=== PATIENT | male | born 1980 | race Two or more races ===

== ENCOUNTER 2016-05-29 11:58 | Emergency (ER) | payer MEDICAID ==
[~2016-05-29] VITALS: Ht 165.1 cm; Wt 63.5 kg
[~2016-05-29 11:58] MED LIST: IBUPROFEN600 MG ORAL; NKM; NORCO 5-325 TA1 EACH ORAL
[2016-05-29 12:15] VITALS: BP 128/85
[2016-05-29] MEDS ORDERED: Famotidine 20 MG/ 2ML VIAL IVP ONE (12:15)
--- NOTE | 2016-05-29 12:51 | Emergency Room Report ---
History of Present Illness General Chief Complaint: Nausea, Vomiting, and Diarrhea Source: Patient Present Illness HPI The patient is a 35-year-old male who denies any medical history presenting for 2 days of nausea, vomiting, and diarrhea with abdominal pain. The patient states that he developed the nausea and vomiting before the pain. Patient denies any sick contacts or recent travel. Patient states pain is a 9/10 dull ache to the mid abdomen with no radiation. The patient states he has not been able to eat well within the past 2 days. The patient denies other symptoms including fever, chills, shortness of breath, chest pain, night sweats, melena, hematochezia, hematemesis Allergies: Coded Allergies: No Known Allergies (Unverified , 12/19/13) Patient History Past Medical History: see triage record Pertinent Family History: none Reviewed Nursing Documentation: PMH: Agreed, PSxH: Agreed Nursing Documentation-PM Past Medical History: No Stated History Hx Neurological Problems: Yes - HEADACHES Review of Systems All Other Systems: negative except mentioned in HPI Physical Exam Vital Signs Date Time Temp Pulse Resp B/P Pulse Ox O2 Delivery O2 Flow Rate FiO2 05/29/16 12:10 98.2 83 24 128/85 97 Room Air Sp02 EP Interpretation: reviewed, normal General Appearance: no apparent distress, alert, GCS 15, non-toxic Head: normocephalic, atraumatic Eyes: bilateral eye PERRL, bilateral eye normal inspection ENT: hearing grossly normal, normal pharynx, no angioedema, normal voice Neck: full range of motion, supple/symm/no masses Respiratory: chest non-tender, lungs clear, normal breath sounds, no wheezing, speaking full sentences Gastrointestinal: normal inspection, normal bowel sounds, non-distended, no guarding, tenderness - RUQ Genitourinary: normal inspection, no CVA tenderness Musculoskeletal: back normal, gait/station normal, normal range of motion, non- tender Neurologic: alert, oriented x3, responsive, motor strength/tone normal, sensory intact, speech normal Psychiatric: judgement/insight normal, memory normal, mood/affect normal, no suicidal/homicidal ideation Skin: normal color, no rash, warm/dry, well hydrated Lymphatic: no adenopathy Medical Decision Making PA Attestation Dr. Kearney is my supervising physician. Patient management was discussed with my supervising physician Diagnostic Impression: Primary Impression: Biliary colic ER Course The patient is a 35-year-old male who denies any medical history presenting for 2 days of nausea, vomiting, and diarrhea with abdominal pain Differential diagnoses considered include but not limited to cholecystitis, gastritis, pancreatitis, appendicitis, renal lithiases Physical exam: Vitals are within normal limits. No apparent distress Abdomen is soft. Normal bowel sounds. Nondistended. No ecchymosis or discoloration. There is tenderness to palpation over the right upper cord and only. No guarding No CVA tenderness Ultrasound of the abdomen shows Fatty liver and increased gallbladder size. No signs of cholecystitis or cholelithiasis. The patient is given Zofran, IV fluids and pain medication and is feeling better. The patient will be discharged home with prescription for pain medication and Zofran and will follow up with PMD. Patient is informed of the results Laboratory Tests Test 05/29/16 12:45 White Blood Count 6.4 K/UL (4.8-10.8) Red Blood Count 5.03 M/UL (4.70-6.10) Hemoglobin 16.0 G/DL (14.2-18.0) Hematocrit 47.1 % (42.0-52.0) Mean Corpuscular Volume 94 FL (80-99) Mean Corpuscular Hemoglobin 31.8 PG (27.0-31.0) H Mean Corpuscular Hemoglobin Concent 33.9 G/DL (32.0-36.0) Red Cell Distribution Width 11.4 % (11.6-14.8) L Platelet Count 215 K/UL (150-450) Mean Platelet Volume 9.8 FL (6.5-10.1) Neutrophils (%) (Auto) 67.4 % (45.0-75.0) Lymphocytes (%) (Auto) 21.5 % (20.0-45.0) Monocytes (%) (Auto) 8.8 % (1.0-10.0) Eosinophils (%) (Auto) 0.6 % (0.0-3.0) Basophils (%) (Auto) 1.7 % (0.0-2.0) Urine Color Yellow Urine Appearance Clear Urine pH 5 (4.5-8.0) Urine Specific [place] 1.025 (1.005-1.035) Urine Protein Negative (NEGATIVE) Urine Glucose (UA) Negative (NEGATIVE) Urine Ketones Negative (NEGATIVE) Urine Occult Blood 2+ (NEGATIVE) H Urine Nitrite Negative (NEGATIVE) Urine Bilirubin Negative (NEGATIVE) Urine Urobilinogen Normal MG/DL (0.0-1.0) Urine Leukocyte Esterase Negative (NEGATIVE) Urine RBC 2-4 /HPF (0 - 0) H Urine WBC 0-2 /HPF (0 - 0) Urine Squamous Epithelial Cells Occasional /LPF Urine Bacteria Few /HPF (NONE) Urine Mucus Moderate /LPF (NONE/OCC) H Sodium Level 134 mEQ/L (135-145) L Potassium Level 4.0 mEQ/L (3.4-4.9) Chloride Level 92 mEQ/L (98-107) L Carbon Dioxide Level 25 mEQ/L (20-30) Anion Gap 17 (5-15) H Blood Urea Nitrogen 12 mg/dL (7-23) Creatinine 0.7 mg/dL (0.7-1.2) Estimate Glomerular Filtration Rate > 60 mL/min (>60) Glucose Level 121 mg/dL (74-106) H Calcium Level 9.2 mg/dL (8.6-10.2) Total Bilirubin 2.3 mg/dL (0.0-1.2) H Direct Bilirubin 0.4 mg/dL (0.1-0.3) H Aspartate Amino Transferase (AST) 264 U/L (5-40) H Alanine Aminotransferase (ALT) 140 U/L (3-41) H Alkaline Phosphatase 104 U/L (40-129) Total Protein 7.1 g/dL (6.6-8.7) Albumin 4.1 g/dL (3.5-5.2) Globulin 3.0 g/dL Albumin/Globulin Ratio 1.3 (1.0-2.7) Amylase Level 46 U/L (10-110) Lipase 15 U/L (< 60) Lab Results Impression CBC shows no leukocytosis. It was unremarkable CMP shows increased AST, ALT. Both total and direct bilirubin elevated. Urinalysis unremarkable CT/MRI/US Diagnostic Results CT/MRI/US Diagnostic Results : Imaging Test Ordered: Abd US Impression Liver demonstrates diffusely increased echogenicity, consistent with diffuse hepatocellular disease, most likely fatty change. Also described on prior CT scan of 05/18/2014 Negative for gallstones or dilated ducts or other acute pathology Last Vital Signs Date Time Temp Pulse Resp B/P Pulse Ox O2 Delivery O2 Flow Rate FiO2 05/29/16 12:15 24 128/85 97 Room Air 05/29/16 12:10 98.2 83 Status: improved Disposition: HOME, SELF-CARE Condition: Improved Scripts Hydrocodone Bit/Acetaminophen 5-325* (NORCO 5-325 TABLET*) 1 Each Tablet 1 TAB ORAL Q6HR Y for For Pain, #10 TAB Prov: JACQUES JIMENEZ 05/29/16 Ondansetron* (ZOFRAN*) 4 Mg Tablet 4 MG ORAL Q6H Y for Nausea & Vomiting, #15 TAB Prov: JACQUES JIMENEZ.Adriana 05/29/16 JACQUES JIMENEZ May 29, 2016 12:51
[2016-05-29 12:54] LABS: BASOPHILS % (AUTO) 1.7 % (0.0-2.0); EOSINOPHILS % (AUTO) 0.6 % (0.0-3.0); LYMPHOCYTES % (AUTO) 21.5 % (20.0-45.0); MEAN CORPUSCULAR HEMOGLOBIN 31.8 PG (27.0-31.0); MEAN CORPUSCULAR HGB CONC 33.9 G/DL (32.0-36.0); MEAN CORPUSCULAR VOLUME 94 FL (80-99); MEAN PLATELET VOLUME 9.8 FL (6.5-10.1); MONOCYTES % (AUTO) 8.8 % (1.0-10.0); NEUTROPHILS % (AUTO) 67.4 % (45.0-75.0); PLATELET COUNT 215 K/UL (150-450); RED BLOOD COUNT 5.03 M/UL (4.70-6.10); RED CELL DISTRIBUTION WIDTH 11.4 % (11.6-14.8); WHITE BLOOD COUNT 6.4 K/UL (4.8-10.8)
[2016-05-29 12:57] LABS: APPEARANCE,URINE CLEAR; KETONES,URINE NEGATIVE (NEGATIVE); LEUKOCYTE ESTERASE ,URINE NEGATIVE (NEGATIVE); NITRITE,URINE NEGATIVE (NEGATIVE); PH,URINE 5 (4.5-8.0); PROTEIN,URINE NEGATIVE (NEGATIVE); UROBILINOGEN,URINE NORMAL MG/DL (0.0-1.0)
[2016-05-29 13:08] LABS: ALANINE AMINOTRANSFERASE 140 U/L (3-41); ALBUMIN/GLOBULIN RATIO 1.3 (1.0-2.7); AMYLASE 46 U/L (10-110); ANION GAP 17 (5-15); ASPARTATE AMINO TRANSFERASE 264 U/L (5-40); BACTERIA,URINE FEW /HPF; CALCIUM 9.2 mg/dL (8.6-10.2); CARBON DIOXIDE 25 mEQ/L (20-30); CHLORIDE 92 mEQ/L (98-107); CREATININE 0.7 mg/dL (0.7-1.2); GLOMERULAR FILTRATION RATE > 60 mL/min (>60); HEMOLYSIS 15; LIPASE 15 U/L (< 60); MUCUS,URINE MODERATE /LPF (NONE/OCC); SODIUM 134 mEQ/L (135-145); SQUAMOUS EPITHELIAL CELL,UR OCCASIONAL /LPF (NONE/OCC); TOTAL PROTEIN 7.1 g/dL (6.6-8.7); WBC,URINE 0-2 /HPF (0 - 0)
[2016-05-29 13:20] LABS: BILIRUBIN,DIRECT 0.4 mg/dL (0.1-0.3)
[2016-05-29] MEDS ORDERED: Morphine Sulfate 2mg/ml Inj IVP ONE (13:45)
[2016-05-29] MEDS ORDERED: ZOFRAN4 M3 ORAL (16:53)
[2016-05-29] MEDS ORDERED: NORCO 5-325 TA1 EAC1 ORAL (16:53)
[2016-05-29 17:00] VITALS: BP 120/77
--- NOTE | 2016-05-29 17:09 | Diagnostic Imaging Report ---
Indication: Right upper quadrant pain, vomiting x2 days Technique: Moscoso-scale and duplex images of the upper abdomen were obtained Comparison: None Findings: . Gallbladder is unremarkable, without stones, wall thickening, nor pericholecystic fluid. Sonographic Espinal's sign is negative. Common bile duct measures 6 mm in diameter. No intrahepatic biliary ductal dilatation. Liver demonstrates diffusely increased echogenicity, consistent with diffuse hepatocellular disease, most likely fatty change.. Portal vein and hepatic veins are patent.. Pancreas is unremarkable. Spleen is unremarkable. Left kidney measures 11.1 cm in length. Right kidney measures 10.9 cm length. Both kidneys demonstrate normal echogenicity. There is no hydronephrosis. No focal abnormality. . Non-aneurysmal abdominal aorta. Impression: Liver demonstrates diffusely increased echogenicity, consistent with diffuse hepatocellular disease, most likely fatty change. Also described on prior CT scan of 05/18/2014 Negative for gallstones or dilated ducts or other acute pathology
== END 2016-05-29 17:00 | disposition home or self-care (01) ==
LOC: EMR 13:15
DX: K80.50 Calculus of bile duct without cholangitis or cholecystitis without obstruction (principal)
CPT/HCPCS: 36415; 76700; 80053; 81003; 82150; 82248; 83690; 85025; 96374; 96375; 99284; J2405; S0028

== ENCOUNTER 2018-10-01 12:59 | Emergency (ER) | payer MEDICAID ==
[~2018-10-01] VITALS: Ht 162.6 cm; Wt 83.9 kg
[~2018-10-01 12:59] MED LIST changes: +NORCO 5-325 TA1 EAC1 ORAL; +ZOFRAN4 M3 ORAL
[2018-10-01] MEDS ORDERED: NKM (13:14)
--- NOTE | 2018-10-01 13:26 | NUR ---
ED Nurse Note: PT WALKED IN TO ER TODAY FROM HOME. AOX4. PT C/O LOWER ABDOMINAL PAIN, 11/05 X 2 DAYS AGO ALONG WITH MULTIPLE EPISODES OF VOMITING AND DIARRHEA. ACTIVE BOWEL SOUNDS IN ALL QUADRANTS. ABDOMEN NONDISTENDED AND NONTENDER TO PALPATION. LAST BM X THIS AM WHICH PT STATES WAS LIQUID. PT STATES HE HS HX OF ALCOHOLISM AND DRINKS ABOUT 5-6 BEERS A DAY WITH OCCASIONAL TEQUILA. AT BEDSIDE, O2 SAT 87% ON RA. PT PLACED ON 2L O2 VIA NASAL CANNULA. O2 SAT 97% ON 2L. DR IRAJ WYLIE.
[2018-10-01 13:28] VITALS: BP 128/84
[2018-10-01] MEDS ORDERED: Morphine Sulfate 4mg/ml Inj (IV USE ONLY) IVP ONE (13:30)
[2018-10-01] MEDS ORDERED: Isovue-300 100ml vial INJ PRN (13:30)
[2018-10-01 13:38] LABS: APPEARANCE,URINE CLEAR; BILIRUBIN, URINE NEGATIVE (NEGATIVE); COLOR,URINE PALE YELLOW; GLUCOSE, URINE (UA) NEGATIVE (NEGATIVE); KETONES,URINE NEGATIVE (NEGATIVE); LEUKOCYTE ESTERASE ,URINE NEGATIVE (NEGATIVE); NITRITE,URINE NEGATIVE (NEGATIVE); PH,URINE 5 (4.5-8.0); PROTEIN,URINE NEGATIVE (NEGATIVE); UROBILINOGEN,URINE NORMAL MG/DL (0.0-1.0)
--- NOTE | 2018-10-01 13:41 | NUR ---
ED Nurse Note: RT AT BEDSIDE FOR ABG.
[2018-10-01 13:54] LABS: BASOPHILS % (AUTO) 1.9 % (0.0-2.0); EOSINOPHILS % (AUTO) 0.7 % (0.0-3.0); HEMATOCRIT 41.9 % (42.0-52.0); HEMOGLOBIN 15.1 G/DL (14.2-18.0); LYMPHOCYTES % (AUTO) 29.7 % (20.0-45.0); MEAN CORPUSCULAR VOLUME 94 FL (80-99); MONOCYTES % (AUTO) 4.9 % (1.0-10.0); NEUTROPHILS % (AUTO) 62.8 % (45.0-75.0); PLATELET COUNT 165 K/UL (150-450); RED BLOOD COUNT 4.44 M/UL (4.70-6.10); RED CELL DISTRIBUTION WIDTH 13.8 % (11.6-14.8); WHITE BLOOD COUNT 5.9 K/UL (4.8-10.8)
--- NOTE | 2018-10-01 14:01 | Emergency Room Report ---
History of Present Illness General Chief Complaint: Abdominal Pain Source: Patient Present Illness HPI Patient presents emergency department today complaint 2 days of worsening abdominal pain. Patient states that his pain is right lower quadrant associate nausea vomiting and episodes of diarrhea. He denies any fever. No chest pain shortness of breath. Symptoms noted to be severe. No other modifying factors. No other associated signs and symptoms. No other complaints were noted. Allergies: Coded Allergies: No Known Allergies (Unverified , 12/19/13) Patient History Past Medical History: none Past Surgical History: none Pertinent Family History: none Social History: Denies: smoking, alcohol use, drug use Reviewed Nursing Documentation: PMH: Agreed; PSxH: Agreed Nursing Documentation-PMH Past Medical History: No Stated History Hx Neurological Problems: Yes - HEADACHES Review of Systems All Other Systems: negative except mentioned in HPI Physical Exam Vital Signs Date Time Temp Pulse Resp B/P (MAP) Pulse Ox O2 Delivery O2 Flow Rate FiO2 10/01/18 13:07 98.2 85 17 120/79 (93) 95 Room Air 10/01/18 13:28 2.0 Sp02 EP Interpretation: reviewed, normal General Appearance: normal inspection, well appearing, no apparent distress, alert Head: atraumatic Eyes: bilateral eye normal inspection ENT: normal ENT inspection, hearing grossly normal, normal voice Neck: normal inspection, full range of motion, supple, no bony tend Respiratory: normal inspection, lungs clear, normal breath sounds, no respiratory distress, no retraction, no wheezing Cardiovascular #1: regular rate, rhythm, no edema Gastrointestinal: normal inspection, normal bowel sounds, soft, no guarding, no hernia, tenderness - Tender right lower quadrant Genitourinary: no CVA tenderness Musculoskeletal: normal inspection, back normal, normal range of motion Neurologic: normal inspection, alert, responsive, speech normal Psychiatric: normal inspection, judgement/insight normal, mood/affect normal Medical Decision Making Diagnostic Impression: Primary Impression: Abdominal pain ER Course Patient presents to the emergency department today complaining of abdominal pain. Differential considerations include acute pancreatitis, cholecystitis, gastritis, hepatitis, appendicitis just to name a few. Given patient's presentation I feel the patient require extensive laboratory work-up and CT scan to rule out appendicitis. I will sign this case out to my colleague Dr. Lozano for final disposition. Last Vital Signs Date Time Temp Pulse Resp B/P (MAP) Pulse Ox O2 Delivery O2 Flow Rate FiO2 10/01/18 13:28 98.4 94 28 128/84 97 Nasal Cannula 2.0 Referrals: NOT CHOSEN IPA/,REFERRING (PCP) Gabriel Bai MD Oct 01, 2018 14:01
[2018-10-01 14:06] LABS: ANION GAP 13 mmol/L (5-15); BLOOD UREA NITROGEN 10 mg/dL (7-18); CALCIUM 8.6 MG/DL (8.5-10.1); CARBON DIOXIDE 25 MMOL/L (21-32); CHLORIDE 105 MMOL/L (98-107); CREATININE 0.5 MG/DL (0.55-1.30); POTASSIUM 3.6 MMOL/L (3.5-5.1); SODIUM 143 MMOL/L (136-145)
[2018-10-01 14:10] LABS: ALANINE AMINOTRANSFERASE 148 U/L (12-78); ALBUMIN 3.9 G/DL (3.4-5.0); ALBUMIN/GLOBULIN RATIO 0.9 (1.0-2.7); ALKALINE PHOSPHATASE 171 U/L (46-116); ASPARTATE AMINO TRANSFERASE 181 U/L (15-37); BILIRUBIN,TOTAL 0.6 MG/DL (0.2-1.0)
--- NOTE | 2018-10-01 14:11 | NUR ---
ED Nurse Note: RADIOLOGY CALLED FOR CT.
--- NOTE | 2018-10-01 14:15 | NUR ---
ED Nurse Note: XRAY AT BEDSIDE.
[2018-10-01 14:18] LABS: INR 1.2 (0.9-1.1)
--- NOTE | 2018-10-01 14:18 | NUR ---
ED Nurse Note: PT DOWN TO CT VIA CHUCK.
--- NOTE | 2018-10-01 14:42 | NUR ---
ED Nurse Note: PT BACK FROM CT VIA CHUCK.
--- NOTE | 2018-10-01 15:02 | Diagnostic Imaging Report ---
Indication: Abdominal pain Technique: Continuous helical transaxial imaging of the abdomen and pelvis was obtained from the lung bases to the pubic symphysis during intravenous contrast administration. Coronal 2-D reformats were also obtained. Study obtained in a Siemens sensation [address] Automatic Exposure Control was utilized. Total Dose length Product (DLP): 699.[address] Dose Index Volume (CTDIvol): 12.7 mGy Comparison: None Findings: The liver is enlarged and low in attenuation. Gallbladder is distended. Spleen appears normal. The pancreas, kidneys and adrenal glands are unremarkable. The appendix is normal. There is apparent thickening of the colonic wall, which is suboptimally evaluated as it is diffusely decompressed. Correlate clinically for colitis. There is no abscess or free fluid. Bladder is unremarkable. IMPRESSION: Hepatomegaly with fatty infiltration. Diffuse underdistention of the colon which is limited in evaluation. That said there is some suspicion of colitis. Please correlate clinically. Normal appendix The CT scanner at [facility] is accredited by the [employer] and the scans are performed using dose optimization techniques as appropriate to a performed exam including Automatic Exposure control.
--- NOTE | 2018-10-01 15:05 | Diagnostic Imaging Report ---
Indication: Cough Comparison: 01/20/2016 A single view chest radiograph was obtained. Findings: Cardiomediastinal appearance is within normal limits for age. The lungs are clear. Pulmonary vascularity is appropriate. The diaphragmatic contour is smooth and costophrenic angles are sharp. No pleural effusions are identified. The bones are unremarkable. Impression: No acute findings
[2018-10-01 15:13] VITALS: BP 124/80
[2018-10-01] MEDS ORDERED: ONDANSETRON ODT4 MG BC (15:30)
[2018-10-01] MEDS ORDERED: DICYCLOMINE HCL10 MG ORAL (15:30)
[2018-10-01] MEDS ORDERED: METRONIDAZOLE500 MG ORAL (15:30)
[2018-10-01] MEDS ORDERED: RANITIDINE HCL150 MG ORAL (15:30)
--- NOTE | 2018-10-01 15:33 | Emergency Room Report ---
Physical Exam Vital Signs Date Time Temp Pulse Resp B/P (MAP) Pulse Ox O2 Delivery O2 Flow Rate FiO2 10/01/18 13:07 98.2 85 17 120/79 (93) 95 Room Air 10/01/18 13:28 2.0 Medical Decision Making Diagnostic Impression: Primary Impression: Colitis Additional Impression: Abdominal pain Qualified Codes: R10.9 - Unspecified abdominal pain ER Course Hospital Course 37 yo M presents to ED c/o abd pain and diarrhea Initially seen and evaluated by Dr carbajal; please see his note for full history and physical Clinical course patient pending CT CT Shows colitis. no evidence of appendicitis discussed findings with patient. On reassessment patient states he feels better. Safe for discharge with close outpatient follow-up. Will provide prescriptions for antibiotics and other medications. Will provide referrals. I feel this is a highly complex case requiring extensive working including EKG/ Rhythm strip, Xray/CT/US, Blood/urine lab work, repeat exams while in ED, and administration of strong opiates/narcotics for pain control, admission to hospital or close patient follow up. Diagnosis - colitis, abdominal pain Stable and discharged to home with Rx flagyl, zantac, zofran, bentyl. Followup with PMD. Return to ED if symptoms recur or worsen Labs Test 10/01/18 13:16 10/01/18 13:25 10/01/18 13:34 Urine Color Pale yellow Urine Appearance Clear Urine pH 5 (4.5-8.0) Urine Specific [place] 1.015 (1.005-1.035) Urine Protein Negative (NEGATIVE) Urine Glucose (UA) Negative (NEGATIVE) Urine Ketones Negative (NEGATIVE) Urine Blood 1+ (NEGATIVE) Urine Nitrite Negative (NEGATIVE) Urine Bilirubin Negative (NEGATIVE) Urine Urobilinogen Normal MG/DL (0.0-1.0) Urine Leukocyte Esterase Negative (NEGATIVE) Urine RBC 0-2 /HPF (0 - 0) Urine WBC 0 /HPF (0 - 0) Urine Squamous Epithelial Cells None /LPF (NONE/OCC) Urine Bacteria Occasional /HPF (NONE) Urine Mucus Moderate /LPF (NONE/OCC) Arterial Blood pH 7.361 (7.350-7.450) Arterial Blood Partial Pressure CO2 41.3 mmHg (35.0-45.0) Arterial Blood Partial Pressure O2 92.9 mmHg (75.0-100.0) Arterial Blood HCO3 22.9 mmol/L (22.0-26.0) Arterial Blood Oxygen Saturation 96.2 % (95-100) Arterial Blood Base Excess -2.4 (-2-2) Neal Test Positive White Blood Count 5.9 K/UL (4.8-10.8) Red Blood Count 4.44 M/UL (4.70-6.10) Hemoglobin 15.1 G/DL (14.2-18.0) Hematocrit 41.9 % (42.0-52.0) Mean Corpuscular Volume 94 FL (80-99) Mean Corpuscular Hemoglobin 34.1 PG (27.0-31.0) Mean Corpuscular Hemoglobin Concent 36.1 G/DL (32.0-36.0) Red Cell Distribution Width 13.8 % (11.6-14.8) Platelet Count 165 K/UL (150-450) Mean Platelet Volume 8.1 FL (6.5-10.1) Neutrophils (%) (Auto) 62.8 % (45.0-75.0) Lymphocytes (%) (Auto) 29.7 % (20.0-45.0) Monocytes (%) (Auto) 4.9 % (1.0-10.0) Eosinophils (%) (Auto) 0.7 % (0.0-3.0) Basophils (%) (Auto) 1.9 % (0.0-2.0) Prothrombin Time 12.4 SEC (9.30-11.50) Prothromb Time International Ratio 1.2 (0.9-1.1) Activated Partial Thromboplast Time 29 SEC (23-33) Sodium Level 143 MMOL/L (136-145) Potassium Level 3.6 MMOL/L (3.5-5.1) Chloride Level 105 MMOL/L (98-107) Carbon Dioxide Level 25 MMOL/L (21-32) Anion Gap 13 mmol/L (5-15) Blood Urea Nitrogen 10 mg/dL (7-18) Creatinine 0.5 MG/DL (0.55-1.30) Estimat Glomerular Filtration Rate > 60 mL/min (>60) Glucose Level 135 MG/DL (74-106) Calcium Level 8.6 MG/DL (8.5-10.1) Total Bilirubin 0.6 MG/DL (0.2-1.0) Aspartate Amino Transf (AST/SGOT) 181 U/L (15-37) Alanine Aminotransferase (ALT/SGPT) 148 U/L (12-78) Alkaline Phosphatase 171 U/L (46-116) Troponin I 0.000 ng/mL (0.000-0.056) Total Protein 8.1 G/DL (6.4-8.2) Albumin 3.9 G/DL (3.4-5.0) Globulin 4.2 g/dL Albumin/Globulin Ratio 0.9 (1.0-2.7) Lipase 104 U/L (73-393) CT/MRI/US Diagnostic Results CT/MRI/US Diagnostic Results : Imaging Test Ordered: CT A/P Impression Findings: The liver is enlarged and low in attenuation. Gallbladder is distended. Spleen appears normal. The pancreas, kidneys and adrenal glands are unremarkable. The appendix is normal. There is apparent thickening of the colonic wall, which is suboptimally evaluated as it is diffusely decompressed. Correlate clinically for colitis. There is no abscess or free fluid. Bladder is unremarkable. Last Vital Signs Date Time Temp Pulse Resp B/P (MAP) Pulse Ox O2 Delivery O2 Flow Rate FiO2 10/01/18 15:13 98.3 86 20 124/80 99 Room Air 10/01/18 13:28 2.0 Status: improved Disposition: HOME, SELF-CARE Condition: Stable Scripts Ranitidine Hcl* (ZANTAC*) 150 Mg Tablet 150 MG ORAL TWICE A DAY, #30 TAB Prov: Long Lozano MD 10/01/18 Ondansetron Odt* (ZOFRAN ODT*) 4 Mg Tab.rapdis 4 MG BC EVERY 6 HOURS PRN for Nausea & Vomiting, #20 TAB 0 Refills Prov: Long Lozano MD 10/01/18 Dicyclomine Hcl* (DICYCLOMINE HCL*) 10 Mg Capsule 10 MG ORAL QID, #20 CAP Prov: Long Lozano MD 10/01/18 Metronidazole* (FLAGYL*) 500 Mg Tablet 500 MG ORAL THREE TIMES A DAY, #21 TAB Prov: Long Lozano MD 10/01/18 Referrals: NOT CHOSEN IPA/,REFERRING (PCP) [facility] Kathleen Masterson [facility] Patient Instructions: Colitis Long Lozano MD Oct 01, 2018 15:33
--- NOTE | 2018-10-01 15:38 | NUR ---
ED Nurse Note: PT LAYING PEACEFULLY IN BED IN NAD. AOX4. PRESCRIPTIONS AND DISCHARGE PAPERWORK EXPLAINED TO PT. PT VERBALIZES UNDERSTANDING AND ALL QUESTIONS ANSWERED. PRESCRIPTION AND DISCHARGE PAPERWORK GIVEN TO PT, IV AND ID WRISTBAND REMOVED. PT WALKED OUT OF ER WITH STEADY GAIT AND ALL BELONGINGS.
== END 2018-10-01 15:39 | disposition home or self-care (01) ==
LOC: EMR 13:30
DX: K52.9 Noninfective gastroenteritis and colitis, unspecified (principal); R10.9 Unspecified abdominal pain; R19.7 Diarrhea, unspecified
CPT/HCPCS: 36415; 36600; 71045; 74177; 80053; 81003; 82803; 83690; 84484; 85025; 85610; 85730; 96361; 96374; 96375; 99284; J2270; J2405; Q9967

== ENCOUNTER 2018-10-18 16:31 | Emergency (ER) | payer MEDICAID ==
[~2018-10-18] VITALS: Ht 165.1 cm; Wt 72.6 kg
[~2018-10-18 16:31] MED LIST changes: +DICYCLOMINE HCL10 MG ORAL; +METRONIDAZOLE500 MG ORAL; +ONDANSETRON ODT4 MG BC; +RANITIDINE HCL150 MG ORAL
--- NOTE | 2018-10-18 17:10 | Emergency Room Report ---
History of Present Illness General Chief Complaint: Nausea, Vomiting, and Diarrhea Source: Patient Present Illness [facility] Disclaimer: Please note that this report is being documented using DRAGON technology. This can lead to erroneous entry secondary to incorrect interpretation by the dictating instrument. HPI: This is a 38-year-old spnaish speaking male with no medical history presenting for evaluation of abdominal pain, vomiting. Symptoms have been present for 2 days and began yesterday. He notes an epigastric and upper abdominal cramping and burning sensation rating to the chest, persistent postprandial vomiting, difficulty swallowing both solids and liquids and some nonbloody loose stools that began today. He states he has been binge drinking for 2 to 3 days prior but stopped drinking yesterday. He denies any prior history of pancreatitis, gastritis, liver disease, heart disease and takes no medications at baseline. He is noting some pain radiating into his chest from his abdomen but most significantly he is complaining of dehydration and persistent nausea. He otherwise denies headache, visual changes, pain in the neck, dysuria, hematuria, hematochezia or melena. PMH: Denies PSH: Denies Allergies: Denies Social Hx: Occasional alcohol use, denies smoking, denies drug use Allergies: Coded Allergies: No Known Allergies (Unverified , 12/19/13) Nursing Documentation-PMH Past Medical History: No History, Except For Hx Neurological Problems: Yes - HEADACHES Review of Systems All Other Systems: negative except mentioned in HPI Physical Exam Vital Signs Date Time Temp Pulse Resp B/P (MAP) Pulse Ox O2 Delivery O2 Flow Rate FiO2 10/18/18 16:36 98.4 91 19 123/81 (95) 98 Room Air General: Awake and alert, no acute distress, sleeping comfortably on my arrival in the room HEENT: NC/AT. EOMI. PERRLA. Nonicteric sclera. Dry mucous membranes Chest Wall: No tenderness, no deformity Cardiovascular: RRR. S1 and S2 normal. No murmur appreciated Resp: Normal work of breathing. No cough, wheezing or crackles appreciated Abdomen: Abdomen is soft, nondistended. Tenderness in the right upper quadrant , epigastrium, left upper quadrant. Negative Espinal's. There is no rebound or pain in the lower quadrants. No masses are appreciated. Skin: Intact. No abrasions, laceration or rash over the exposed skin MSK: Normal tone and bulk. Moving all extremities. No obvious deformity. Neuro: Awake and alert. Mentating appropriately. Back/Spine: No midline tenderness in the cervical, thoracic or lumbosacral spine. Medical Decision Making Diagnostic Impression: Primary Impression: Abdominal pain Additional Impressions: Alcoholic gastritis Elevated liver enzymes ER Course 38-year-old male presents for evaluation of 2 days nausea, vomiting, loose stools and some chest pain after a 3-day drinking binge. Differential includes but is not limited to gastritis, pancreatitis, cholecystitis, biliary colic, nephrolithiasis, gastroenteritis, viral syndrome, ACS. We will start broad work -up including cardiac enzymes, lipase, start IV fluids and give the patient a GI cocktail. Laboratory Tests Test 10/18/18 17:05 White Blood Count 7.8 K/UL (4.8-10.8) Red Blood Count 4.57 M/UL (4.70-6.10) L Hemoglobin 15.3 G/DL (14.2-18.0) Hematocrit 43.2 % (42.0-52.0) Mean Corpuscular Volume 94 FL (80-99) Mean Corpuscular Hemoglobin 33.5 PG (27.0-31.0) H Mean Corpuscular Hemoglobin Concent 35.5 G/DL (32.0-36.0) Red Cell Distribution Width 10.3 % (11.6-14.8) L Platelet Count 218 K/UL (150-450) Mean Platelet Volume 8.8 FL (6.5-10.1) Neutrophils (%) (Auto) 65.2 % (45.0-75.0) Lymphocytes (%) (Auto) 28.1 % (20.0-45.0) Monocytes (%) (Auto) 5.2 % (1.0-10.0) Eosinophils (%) (Auto) 0.3 % (0.0-3.0) Basophils (%) (Auto) 1.2 % (0.0-2.0) Sodium Level 138 MMOL/L (136-145) Potassium Level 3.6 MMOL/L (3.5-5.1) Chloride Level 104 MMOL/L (98-107) Carbon Dioxide Level 25 MMOL/L (21-32) Anion Gap 9 mmol/L (5-15) Blood Urea Nitrogen 12 mg/dL (7-18) Creatinine 0.6 MG/DL (0.55-1.30) Estimate Glomerular Filtration Rate > 60 mL/min (>60) Glucose Level 142 MG/DL (74-106) H Calcium Level 8.3 MG/DL (8.5-10.1) L Total Bilirubin 1.1 MG/DL (0.2-1.0) H Direct Bilirubin 0.3 MG/DL (0.0-0.3) Aspartate Amino Transferase (AST) 370 U/L (15-37) H Alanine Aminotransferase (ALT) 303 U/L (12-78) H Alkaline Phosphatase 235 U/L (46-116) H Total Creatine Kinase 174 U/L (26-308) Creatine Kinase MB 1.5 NG/ML (0.0-3.6) Creatine Kinase MB Relative Index 0.8 Troponin I 0.000 ng/mL (0.000-0.056) Total Protein 7.6 G/DL (6.4-8.2) Albumin 3.8 G/DL (3.4-5.0) Globulin 3.8 g/dL Albumin/Globulin Ratio 1.0 (1.0-2.7) Lipase 118 U/L (73-393) EKG Diagnostic Results EKG Time: 17:24 Rate: normal Rhythm: NSR ST Segments: no acute changes Other Impression Sinus rhythm, normal axis, normal intervals. No ischemia. Rhythm Strip Diag. Results Rhythm Strip Time: 17:24 EP Interpretation: yes Rate: 80s Rhythm: NSR Chest X-Ray Diagnostic Results Chest X-Ray Diagnostic Results : # of Views/Limited/Complete: 1 View EP Interpretation: Yes PA Xray: Interpretation reviewed Interpretation: no consolidation, no effusion, no pneumothorax Impression: No acute disease CT/MRI/US Diagnostic Results CT/MRI/US Diagnostic Results : Impression EXAM: US Abdomen Complete CLINICAL HISTORY: GB TECHNIQUE: Real-time ultrasound of the abdomen (complete) with image documentation. COMPARISON: No relevant prior studies available. FINDINGS: Liver: Hepatomegaly, 17 cm. Echogenic liver that may suggest fatty infiltration or hepatocellular disease. Gallbladder: No gallstones or biliary ductal dilatation. Common bile duct: Unremarkable as visualized. Pancreas: Unremarkable as visualized Kidneys: No hydronephrosis. Spleen: No splenomegaly. Aorta: Unremarkable. No aneurysm. Inferior vena cava: Unremarkable. IMPRESSION: No gallstones or biliary ductal dilatation. Dictated By: Roxana Kirby MD Electronically Signed By: Roxana Kirby MD Signed Date/Time 10/18/182126 Reevaluation Time: 21:55 Last Vital Signs Date Time Temp Pulse Resp B/P (MAP) Pulse Ox O2 Delivery O2 Flow Rate FiO2 10/18/18 16:36 98.4 91 19 123/81 (95) 98 Room Air Status: improved Reevaluation Impression Labs show elevated liver function studies and alkaline phosphatase but a normal lipase. Right upper quadrant ultrasound was performed showing no evidence of acute cholecystitis or gallstones. Patient's liver enzymes are likely elevated in light of his recent binge drinking and his abdominal pain is likely secondary to alcoholic hepatitis. The patient will be discharged home with Zofran, famotidine and Maalox. Encouraged him to refrain from drinking alcohol as much as possible and to follow-up with his PMD next week for repeat labs. Names and numbers of clinics in the area have been provided in discharge paperwork. He understands and agrees with the treatment plan. The patient was updated on all labs, treatment plan, medications and all instructions were answered through the use of a residential construction instructor. Disposition: HOME, SELF-CARE Condition: Stable Scripts Ondansetron Odt* (ZOFRAN ODT*) 4 Mg Tab.rapdis 4 MG BC EVERY 6 HOURS PRN for Nausea & Vomiting, #10 TAB 0 Refills Prov: José Miguel Rahman MD 10/18/18 Mag Hydrox/Al Hydrox/Simeth (MAALOX MAXIMUM STRENGTH SUSP) 355 Ml Oral.susp 355 ML PO TID PRN for Abdominal cramps for 7 Days, ML Prov: José Miguel Rahman MD 10/18/18 Famotidine (FAMOTIDINE) 20 Mg Tablet 20 MG ORAL TWICE A DAY, #60 TAB 0 Refills Prov: José Miguel Rahman MD 10/18/18 Referrals: NOT CHOSEN IPA/,REFERRING (PCP) José Miguel Rahman MD Oct 18, 2018 17:10
[2018-10-18] MEDS ORDERED: Dicyclomine HCl 10mg/5ml oral soln ORAL ONE (17:15)
[2018-10-18] MEDS ORDERED: Mylanta II UD 30ml ORAL ONE (17:15)
[2018-10-18] MEDS ORDERED: Lidocaine 2% Visc 15ml soln ORAL ONE (17:15)
--- NOTE | 2018-10-18 17:15 | NUR ---
ED Nurse Note: Patient presents to ER due to N/V/D for the past few days; Patient unable to tolerate any oral intake. Patient + recent alcohol use. Reports no use drug. Patient awake, alert, oriented x4. Ambulating to the room with steady gait. No N/V noted at this time.
--- NOTE | 2018-10-18 17:27 | Diagnostic Imaging Report ---
Indication: Chest pain Technique: One view of the chest Comparison: 10/01/2018 Findings: Lungs and pleural spaces are clear. Heart size is normal. No significant interim change Impression: No acute process
[2018-10-18 17:32] VITALS: BP 113/70
[2018-10-18 17:43] LABS: BASOPHILS % (AUTO) 1.2 % (0.0-2.0); EOSINOPHILS % (AUTO) 0.3 % (0.0-3.0); HEMATOCRIT 43.2 % (42.0-52.0); HEMOGLOBIN 15.3 G/DL (14.2-18.0); LYMPHOCYTES % (AUTO) 28.1 % (20.0-45.0); MEAN CORPUSCULAR VOLUME 94 FL (80-99); MONOCYTES % (AUTO) 5.2 % (1.0-10.0); NEUTROPHILS % (AUTO) 65.2 % (45.0-75.0); PLATELET COUNT 218 K/UL (150-450); RED BLOOD COUNT 4.57 M/UL (4.70-6.10); RED CELL DISTRIBUTION WIDTH 10.3 % (11.6-14.8); WHITE BLOOD COUNT 7.8 K/UL (4.8-10.8)
--- NOTE | 2018-10-18 17:53 | NUR ---
ED Nurse Note: Patient asleep. Bed in lowest position.
[2018-10-18 17:59] LABS: ANION GAP 9 mmol/L (5-15); BLOOD UREA NITROGEN 12 mg/dL (7-18); CALCIUM 8.3 MG/DL (8.5-10.1); CARBON DIOXIDE 25 MMOL/L (21-32); CHLORIDE 104 MMOL/L (98-107); CREATININE 0.6 MG/DL (0.55-1.30); POTASSIUM 3.6 MMOL/L (3.5-5.1); SODIUM 138 MMOL/L (136-145)
[2018-10-18 18:13] LABS: ALANINE AMINOTRANSFERASE 303 U/L (12-78); ALBUMIN 3.8 G/DL (3.4-5.0); ALKALINE PHOSPHATASE 235 U/L (46-116); ASPARTATE AMINO TRANSFERASE 370 U/L (15-37); BILIRUBIN,TOTAL 1.1 MG/DL (0.2-1.0); CKMB 1.5 NG/ML (0.0-3.6); CREATINE KINASE 174 U/L (26-308)
[2018-10-18 18:14] LABS: BILIRUBIN,DIRECT 0.3 MG/DL (0.0-0.3)
--- NOTE | 2018-10-18 19:01 | NUR ---
ED Nurse Note: Report given to BATSHEVA Pablo. Patient resting in bed. Family member at bedside.
--- NOTE | 2018-10-18 21:28 | Diagnostic Imaging Report ---
EXAM: US Abdomen Complete CLINICAL HISTORY: GB TECHNIQUE: Real-time ultrasound of the abdomen (complete) with image documentation. COMPARISON: No relevant prior studies available. FINDINGS: Liver: Hepatomegaly, 17 cm. Echogenic liver that may suggest fatty infiltration or hepatocellular disease. Gallbladder: No gallstones or biliary ductal dilatation. Common bile duct: Unremarkable as visualized. Pancreas: Unremarkable as visualized Kidneys: No hydronephrosis. Spleen: No splenomegaly. Aorta: Unremarkable. No aneurysm. Inferior vena cava: Unremarkable. IMPRESSION: No gallstones or biliary ductal dilatation.
[2018-10-18] MEDS ORDERED: FAMOTIDINE20 MG ORAL (21:41)
[2018-10-18] MEDS ORDERED: MAALOX MAXIMUM355 M1 PO (21:41)
[2018-10-18] MEDS ORDERED: ONDANSETRON ODT4 MG BC (21:50)
[2018-10-18 22:04] VITALS: BP 125/70
--- NOTE | 2018-10-18 22:06 | NUR ---
ER DISCHARGE NOTE: Patient is cleared to be discharged per ERMD, pt is aox4, on room air, with stable vital signs. pt was given dc and prescription instructions, pt was able to verbalize understanding, pt id band and iv site removed without complications. pt is able to ambulate with steady gait. pt took all belongings.
--- NOTE | 2018-10-20 12:54 | Cardiology Report ---
APPROVED REPORT EKG Measurement Heart [id number] Normal sinus rhythm Possible Inferior infarct, age undetermined Abnormal ECG
== END 2018-10-18 22:14 | disposition home or self-care (01) ==
LOC: EMR 16:58
DX: K29.20 Alcoholic gastritis without bleeding (principal); R79.89 Other specified abnormal findings of blood chemistry; R10.9 Unspecified abdominal pain
CPT/HCPCS: 36415; 71045; 76700; 80053; 82248; 82550; 82553; 83690; 84484; 85025; 93005; 96360; 99284

== ENCOUNTER 2019-01-09 16:09 | Emergency (ER) | payer MEDICAID ==
[~2019-01-09] VITALS: Ht 160 cm; Wt 72.6 kg
[~2019-01-09 16:09] MED LIST changes: +FAMOTIDINE20 MG ORAL; +MAALOX MAXIMUM355 M1 PO
[2019-01-09] MEDS ORDERED: NKM (16:24)
[2019-01-09 16:45] VITALS: BP 125/86
[2019-01-09] MEDS ORDERED: Lidocaine 2% Visc 15ml soln ORAL ONE (17:00)
[2019-01-09] MEDS ORDERED: Dicyclomine HCl 10mg/5ml oral soln ORAL ONE (17:00)
[2019-01-09] MEDS ORDERED: ONDANSETRON ODT4 MG BC (17:11)
[2019-01-09] MEDS ORDERED: FAMOTIDINE20 MG ORAL (17:11)
--- NOTE | 2019-01-09 19:08 | Emergency Room Report ---
History of Present Illness General Chief Complaint: Abdominal Pain Source: Patient Present Illness HPI Patient is a 38-year-old male presents after increased epigastric abdominal pain. Patient had similar symptoms in the past. He reports having 2 alcoholic drinks per day. He denies any hematemesis or bloody stools. He reports having watery diarrhea. Increased abdominal cramping. Pain is unchanged by movement. He denies any trauma. Patient had not been taking any medications. Denies prior surgery. Allergies: Coded Allergies: No Known Allergies (Unverified , 12/19/13) Patient History Past Medical History: see triage record Reviewed Nursing Documentation: PMH: Agreed; PSxH: Agreed Nursing Documentation-PMH Past Medical History: No Stated History Hx Neurological Problems: Yes - HEADACHES Review of Systems All Other Systems: negative except mentioned in HPI Physical Exam Vital Signs Date Time Temp Pulse Resp B/P (MAP) Pulse Ox O2 Delivery O2 Flow Rate FiO2 01/09/19 16:21 98.2 88 17 144/90 (108) 97 Room Air Sp02 EP Interpretation: reviewed, normal General Appearance: normal inspection, well appearing, no apparent distress, alert, GCS 15, non-toxic Head: atraumatic ENT: normal ENT inspection, hearing grossly normal, normal voice Neck: normal inspection, full range of motion, supple, no bony tend Respiratory: normal inspection, lungs clear, normal breath sounds, no respiratory distress, no retraction, no wheezing Cardiovascular #1: regular rate, rhythm, no edema Gastrointestinal: normal inspection, normal bowel sounds, non tender, soft, no guarding, no hernia Genitourinary: no CVA tenderness Musculoskeletal: normal inspection, back normal, normal range of motion Neurologic: normal inspection, alert, oriented x3, responsive, apprentice electrician III-XII nml as tested, speech normal Psychiatric: normal inspection, judgement/insight normal, mood/affect normal Medical Decision Making Diagnostic Impression: Primary Impression: Gastritis ER Course Patient presented for upper abdominal pain. Diagnosis include was not limited to gastritis, ulcer, biliary colic among others. Patient has a benign exam and does not appear to require any imaging or laboratory testing at this time. Patient was noted to have increased pain to his right upper abdomen. This improved after GI cocktail. Patient does not show any evidence of severe right upper quadrant tenderness and appears to be stable for outpatient management. Patient was advised to follow-up with primary care physician for recheck. He is to return if worse. Last Vital Signs Date Time Temp Pulse Resp B/P (MAP) Pulse Ox O2 Delivery O2 Flow Rate FiO2 01/09/19 16:45 88 17 Room Air 01/09/19 16:45 98.2 125/86 99 Status: improved Disposition: HOME, SELF-CARE Condition: Stable Scripts Famotidine* (Pepcid 20mg tablet*) 20 Mg Tablet 20 MG ORAL TWICE A DAY, #60 TAB 0 Refills Prov: Mikel Lozano MD 01/09/19 Ondansetron Odt* (ZOFRAN ODT*) 4 Mg Tab.rapdis 4 MG BC EVERY 6 HOURS PRN for Nausea & Vomiting, #10 TAB 0 Refills Prov: Mikel Lozano MD 01/09/19 Referrals: NON PHYSICIAN (PCP) Departure Forms: Return to Work Return to Work in (Days): 3 Patient Instructions: Abdominal Pain, Adult Additional Instructions: Avoid drinking alcohol. Return if worse. Mikel Lozano MD Jan 09, 2019 19:08
== END 2019-01-09 18:05 | disposition home or self-care (01) ==
LOC: EMR 17:10
DX: K29.70 Gastritis, unspecified, without bleeding (principal)
CPT/HCPCS: 99283

== ENCOUNTER 2020-02-01 11:56 | Inpatient (IN) | payer MEDICAID ==
[~2020-02-01] VITALS: Ht 165.1 cm; Wt 72.1 kg
[2020-02-01] MEDS ORDERED: Thiamine HCl 100 MG in D5W 55 ML IVPB STA (12:12)
--- NOTE | 2020-02-01 12:13 | NUR ---
ED Nurse Note: pt presents to ED s/p sz at around 0400 today. pt reports that this is his first time experiencing a sz, it was witnessed by his who reports it lasted for nearly 10 mintues, she states that she saw him "foaming at his mouth." pt appears to have sustained oral trauma, there is dried blood noted on his lip and tongue as well as bruising to tongue. pt is reporting pain from R arm from being on the ground during the sz, denies PAK or pain to head at this time
[2020-02-01 12:15] VITALS: BP 144/82
[2020-02-01] MEDS ORDERED: LORazepam Inj 2mg/ml 1ml IV ONE (12:15)
[2020-02-01] MEDS ORDERED: levETIRAcetam 500mg/NS100ml 100 ML IV ONE (12:15)
--- NOTE | 2020-02-01 13:03 | Diagnostic Imaging Report ---
EXAM: XR Chest, 1 View CLINICAL HISTORY: SZ TECHNIQUE: Frontal view of the chest. COMPARISON: Chest radiograph on 10/18/2018 FINDINGS: Hardware: None. Lungs/pleura: Low lung volumes. Mild bibasilar atelectasis. No other focal consolidation. No pleural effusion or pneumothorax. Heart/mediastinum: Borderline size of the cardiac silhouette which is likely accentuated by low lung volumes. Soft tissues: Unremarkable. Bones: No acute fracture. Upper abdomen: Normal. IMPRESSION: Mild bibasilar atelectasis. No other focal consolidation.
--- NOTE | 2020-02-01 13:14 | Diagnostic Imaging Report ---
EXAM: CT Head Without Intravenous Contrast CLINICAL HISTORY: SZ TECHNIQUE: Axial computed tomography images of the head/brain without intravenous contrast. CTDI is 53.40 mGy and DLP is 1072.20 mGy-cm. One or more of the following dose reduction techniques were used: automated exposure control, adjustment of the mA and/or kV according to patient size, use of iterative reconstruction technique. COMPARISON: None FINDINGS: Brain: No acute infarct or hemorrhage. No extra-axial fluid collection. No mass effect or midline shift. Ventricles and sulci: Normal. No ventriculomegaly or intraventricular hemorrhage. Bones: Normal. No bony lesion or acute fracture. Subcutaneous tissues: Normal. Sinuses: Normal. No air-fluid levels or mucosal thickening. Mastoid air cells: Normal. Orbits: Grossly unremarkable. IMPRESSION: No acute intracranial abnormality.
[2020-02-01 13:16] LABS: HEMATOCRIT 39.5 % (42.0-52.0); HEMOGLOBIN 13.8 G/DL (14.2-18.0); MEAN CORPUSCULAR VOLUME 97 FL (80-99); PLATELET COUNT 50 K/UL (150-450); RED BLOOD COUNT 4.08 M/UL (4.70-6.10); RED CELL DISTRIBUTION WIDTH 12.4 % (11.6-14.8); WHITE BLOOD COUNT 16.9 K/UL (4.8-10.8)
[2020-02-01 13:30] LABS: ANION GAP 9 mmol/L (5-15); BLOOD UREA NITROGEN 13 mg/dL (7-18); CALCIUM 7.7 MG/DL (8.5-10.1); CARBON DIOXIDE 26 MMOL/L (21-32); CHLORIDE 93 MMOL/L (98-107); CREATININE 0.6 MG/DL (0.55-1.30); POTASSIUM 3.1 MMOL/L (3.5-5.1); SODIUM 128 MMOL/L (136-145)
[2020-02-01 13:39] LABS: ALANINE AMINOTRANSFERASE 63 U/L (12-78); ALBUMIN 3.3 G/DL (3.4-5.0); ALBUMIN/GLOBULIN RATIO 0.6 (1.0-2.7); ALKALINE PHOSPHATASE 193 U/L (46-116); ASPARTATE AMINO TRANSFERASE 216 U/L (15-37); BILIRUBIN,TOTAL 4.7 MG/DL (0.2-1.0); CREATINE KINASE 399 U/L (26-308)
[2020-02-01 13:42] LABS: BILIRUBIN,DIRECT 2.6 MG/DL (0.0-0.3)
[2020-02-01 14:25] LABS: APPEARANCE,URINE CLEAR; BILIRUBIN, URINE NEGATIVE (NEGATIVE); GLUCOSE, URINE (UA) NEGATIVE (NEGATIVE); KETONES,URINE NEGATIVE (NEGATIVE); LEUKOCYTE ESTERASE ,URINE NEGATIVE (NEGATIVE); NITRITE,URINE NEGATIVE (NEGATIVE); PH,URINE 6 (4.5-8.0); PROTEIN,URINE NEGATIVE (NEGATIVE); UROBILINOGEN,URINE NORMAL MG/DL (0.0-1.0)
[2020-02-01 14:29] LABS: COLOR,URINE YELLOW
--- NOTE | 2020-02-01 14:42 | Emergency Room Report ---
History of Present Illness General Chief Complaint: Seizure Source: Patient Present Illness HPI The patient presents after having a seizure. He bit the right side of his tongue. He is never had a seizure before. He denies any headache. There is no other trauma to his body. He does drink alcohol. He gives variable answers as to when his last alcoholic drink was. He states he drinks tequila almost daily. He has been seen in the past here for alcohol abuse. Patient states that when he stops drinking he does get the shakes. He does not drive. He states that he has never been arrested for alcohol abuse in the past. Patient denies fevers or chills. There is no neck pain. The patient is unaware of Covid positive contacts. No sore throat, chest pain, palpitations, nausea, vomiting, diarrhea, dysuria, abdominal pain, shortness of breath, joint pain, rashes, depression, dizziness, headache. Allergies: Coded Allergies: No Known Allergies (Unverified , 12/19/13) COVID-19 Screening Contact w/high risk pt: No Experienced COVID-19 symptoms?: No COVID-19 Testing performed PHOTO OPTICS TECHNICIAN: No Patient History Past Medical History: see triage record Social History: Reports: alcohol use; Denies: smoking, drug use Social History Narrative Cook Reviewed Nursing Documentation: PMH: Agreed; PSxH: Agreed Nursing Documentation-PMH Past Medical History: No Stated History Hx Neurological Problems: Yes - HEADACHES Review of Systems All Other Systems: negative except mentioned in HPI Physical Exam Vital Signs Date Time Temp Pulse Resp B/P (MAP) Pulse Ox O2 Delivery O2 Flow Rate FiO2 02/01/20 12:01 98.8 115 18 144/82 (102) 97 Room Air Sp02 EP Interpretation: reviewed, normal General Appearance: well appearing, no apparent distress, GCS 15, non-toxic Head: normocephalic Eyes: bilateral eye scleral icterus ENT: moist mucus membranes - Legal hematoma right side Neck: full range of motion, supple, no meningismus, no bony tend Respiratory: lungs clear, normal breath sounds Cardiovascular #1: regular rate, rhythm, no edema Cardiovascular #2: 2+ radial (R) Gastrointestinal: normal inspection, normal bowel sounds, non tender, no mass, non-distended Musculoskeletal: back normal, normal range of motion Neurologic: alert, motor strength/tone normal, surface grinder III-XII nml as tested, DTRs symmetric, oriented x3, sensory intact, cerebellar normal, speech normal Psychiatric: mood/affect normal Skin: warm/dry, other - Petechial rash look like on upper chest and back Medical Decision Making Diagnostic Impression: Primary Impression: Alcohol withdrawal seizure Qualified Codes: F10.239 - Alcohol dependence with withdrawal, unspecified; R56.9 - Unspecified convulsions Additional Impressions: Alcoholic hepatitis Qualified Codes: K70.10 - Alcoholic hepatitis without ascites Hyponatremia Hypokalemia Thrombocytopenia ER Course Patient presents with new onset seizures possibly associated with alcohol consumption. Differential includes withdrawal seizure, new onset epilepsy, brain bleed, electrolyte abnormality, aspiration pneumonia amongst others. Ativ an and Keppra administered. Patient evaluated with CT of the head, chest x-ray, EKG and labs. Patient placed on a cardiac nurse specialist. Petechial rash is disconcerting CT without intracranial pathology. Chest x-ray no infiltrates. EKG sinus tachycardia with left atrial enlargement rate of 109. Labs with elevated white count and thrombocytopenia. Sodium low potassium low. Liver function tests elevated. Discussion with patient need for hospitalization due to question of possible alcohol withdrawal and also concern about electrolyte abnormalities and leukocytosis. Patient is improved but needs observation in the hospital. Laboratory Tests Test 02/01/20 12:25 02/01/20 12:30 02/01/20 14:07 White Blood Count 16.9 K/UL (4.8-10.8) H Red Blood Count 4.08 M/UL (4.70-6.10) L Hemoglobin 13.8 G/DL (14.2-18.0) L Hematocrit 39.5 % (42.0-52.0) L Mean Corpuscular Volume 97 FL (80-99) Mean Corpuscular Hemoglobin 33.9 PG (27.0-31.0) H Mean Corpuscular Hemoglobin Concent 35.0 G/DL (32.0-36.0) Red Cell Distribution Width 12.4 % (11.6-14.8) Platelet Count 50 K/UL (150-450) L Mean Platelet Volume 12.5 FL (6.5-10.1) H Neutrophils (%) (Auto) % (45.0-75.0) Lymphocytes (%) (Auto) % (20.0-45.0) Monocytes (%) (Auto) % (1.0-10.0) Eosinophils (%) (Auto) % (0.0-3.0) Basophils (%) (Auto) % (0.0-2.0) Differential Total Cells Counted 100 Neutrophils % (Manual) 83 % (45-75) H Lymphocytes % (Manual) 6 % (20-45) L Monocytes % (Manual) 7 % (1-10) Eosinophils % (Manual) 0 % (0-3) Basophils % (Manual) 0 % (0-2) Band Neutrophils 4 % (0-8) Platelet Estimate Decreased L Platelet Morphology Giant Platelets Occasional Red Blood Cell Morphology Normal Sodium Level 128 MMOL/L (136-145) L Potassium Level 3.1 MMOL/L (3.5-5.1) L Chloride Level 93 MMOL/L (98-107) L Carbon Dioxide Level 26 MMOL/L (21-32) Anion Gap 9 mmol/L (5-15) Blood Urea Nitrogen 13 mg/dL (7-18) Creatinine 0.6 MG/DL (0.55-1.30) Estimated Glomerular Filtration Rate > 60 mL/min (>60) Glucose Level 144 MG/DL (74-106) H Calcium Level 7.7 MG/DL (8.5-10.1) L Total Bilirubin 4.7 MG/DL (0.2-1.0) H Direct Bilirubin 2.6 MG/DL (0.0-0.3) H Aspartate Amino Transferase (AST) 216 U/L (15-37) H Alanine Aminotransferase (ALT) 63 U/L (12-78) Alkaline Phosphatase 193 U/L (46-116) H Total Creatine Kinase 399 U/L (26-308) H Troponin I 0.009 ng/mL (0.000-0.056) Total Protein 8.7 G/DL (6.4-8.2) H Albumin 3.3 G/DL (3.4-5.0) L Globulin 5.4 g/dL Albumin/Globulin Ratio 0.6 (1.0-2.7) L Acetaminophen Level < 2 MCG/ML (10-30) L Serum Alcohol < 3 mg/dL POC Whole Blood Glucose 140 MG/DL (74-106) H Urine Color Yellow Urine Appearance Clear Urine pH 6 (4.5-8.0) Urine Specific [place] 1.010 (1.005-1.035) Urine Protein Negative (NEGATIVE) Urine Glucose (UA) Negative (NEGATIVE) Urine Ketones Negative (NEGATIVE) Urine Blood 2+ (NEGATIVE) H Urine Nitrite Negative (NEGATIVE) Urine Bilirubin Negative (NEGATIVE) Urine Urobilinogen Normal MG/DL (0.0-1.0) Urine Leukocyte Esterase Negative (NEGATIVE) Urine RBC 0-2 /HPF (0 - 0) H Urine WBC 0-2 /HPF (0 - 0) Urine Squamous Epithelial Cells Occasional /LPF Urine Bacteria Occasional /HPF (NONE) Urine Opiates Screen Negative (NEGATIVE) Urine Barbiturates Screen Negative (NEGATIVE) Phencyclidine (PCP) Screen Negative (NEGATIVE) Urine Amphetamines Screen Negative (NEGATIVE) Urine Benzodiazepines Screen Negative (NEGATIVE) Urine Cocaine Screen Negative (NEGATIVE) Urine Marijuana (THC) Screen Negative (NEGATIVE) EKG Diagnostic Results Rate: tachycardiac Rhythm: NSR ST Segments: no acute changes - LAE Rhythm Strip Diag. Results EP Interpretation: yes Rhythm: no PVC's, no ectopy, other - ST Chest X-Ray Diagnostic Results Chest X-Ray Diagnostic Results : Chest X-Ray Ordered: Yes # of Views/Limited/Complete: 1 View Indication: Other EP Interpretation: Yes Interpretation: no consolidation, no effusion, no pneumothorax Impression: No acute disease Electronically Signed by: Electronically signed by Bobby Lynn MD CT/MRI/US Diagnostic Results CT/MRI/US Diagnostic Results : Imaging Test Ordered: Head Impression No intracranial pathology Last Vital Signs Date Time Temp Pulse Resp B/P (MAP) Pulse Ox O2 Delivery O2 Flow Rate FiO2 02/01/20 16:00 98 02/01/20 16:00 97.7 18 115/75 (88) 98 02/01/20 15:58 Room Air Status: improved Disposition: ADMITTED INPATIENT Condition: Serious Referrals: NOT CHOSEN IPA/,REFERRING (PCP) Bobby Lynn MD Feb 01, 2020 14:42
--- NOTE | 2020-02-01 15:11 | NUR ---
ED Nurse Note: report was given to BATSHEVA Marcus
--- NOTE | 2020-02-01 15:50 | NUR ---
ED Nurse Note: Patient was admited to TELE unit due to seizure, alcohol withdrawal. Patient was transfered via gurney by ACLS protocol, with all belongings. Patient AAO x4, VSS at this time.
[2020-02-01 16:00] VITALS: BP 115/75
[2020-02-01] MEDS ORDERED: LORazepam Inj 2mg/ml 1ml IV PRN (16:45)
[2020-02-01] MEDS ORDERED: chlordiazePOXIDE 25mg Cap ORAL PRN (16:45)
[2020-02-01] MEDS: Folic Acid 1 MG, Magnesium Sulfate 2,000 MG, Multivitamin - 12 Injection 10 ML in Sodiu... IV SCH (18:10)
--- NOTE | 2020-02-01 18:57 | NUR ---
NURSE NOTES: Received pt from ED from Ashley Pablo. Pt is A/O x4 and verbally responsive but in Turkish. Understand simple Luxem[place]ish. Pt is admitted to the hospital for seizure activity witnessed by . Tele monitor placed and showing NSR. Pt shows no SOB or acute distress. No pain noted. Pt on room air and saturation @ 97%. Seizure precautions in placed and siderails padded. Bed in lowest position and call light placed at bedside. Admitting orders obtained from Dr. Quezada and carried out. Will continue plan of care. Addendum: 02/01/20 at 1906 by Angeline Davis RN Time on Unit [id number]
--- NOTE | 2020-02-01 19:08 | NUR ---
NURSE NOTES: Dr Quezada came to the floor and stated if no seizure activity can be transferred to Med-Surg. Informed both Charges.
--- NOTE | 2020-02-01 19:31 | NUR ---
NURSE HAND-OFF REPORT: Important Events on Shift:[] Patient Status: [] Diet: [] Pending Orders: [] Pending Results/Labs:[] Pending MD notification:[] Latest Vital Signs: Temperature 97.7 , Pulse 98 , B/P 115 /75 , Respiratory Rate 18 , O2 SAT 98 , Room Air, O2 Flow Rate . Vital Sign Comment: [] EKG Rhythm: Sinus Rhythm Rhythm change?: N MD Notified?: - MD Response: Latest [place] Fall Score: 30 Fall Risk: Medium Risk Safety Measures: Call light Within Reach, Bed Alarm , Side Rails Side Rails x2, Bed position Low and Locked. Fall Precautions: Yellow Socks Yellow Gown Patient Fall Education Report given to [].
--- NOTE | 2020-02-01 19:39 | NUR ---
NURSE NOTES: Report received from BATSHEVA Marcus. Patient is awake on bed, alert and oriented x 4. can reconditioner is in place, shows sinus rhythm with no chest pain reported. On regular diet, instructed and amenable. On seizure precaution, padded side rails and suction is set-up. IV site is on right forearm g-20, running banana bag @ 125 cc/hour that is patent and intact. Safety measures are in place, bed in lowest and locked position, side rails up x 2, call light button and bedside table within reach, instructed to call for any assistance needed. Will continue plan of care.
[2020-02-01 20:00] VITALS: BP 107/70
--- NOTE | 2020-02-01 20:05 | NUR ---
NURSE NOTES: Spoke to patient's family member and states that patient had a vomiting episode 2 days ago. She's requesting to have a G.I consult, CA marker blood test for the patient, they're worried that patient might have a Cancer because one of the patient sister with Cancer and they notice that patient has a similar symptoms of his sister. Will inform Dr. Quezada.
--- NOTE | 2020-02-01 21:00 | NUR ---
NURSE NOTES: Received an order from Dr. Quezada to refer patient to Dr. Mahajan for G.I consult, will carry out.
--- NOTE | 2020-02-01 22:45 | History and Physical Report ---
DATE OF ADMISSION: 02/01/2020 HISTORY OF PRESENT ILLNESS: This is a 39 years old male, who came to the emergency room, who has been drinking every day and was noted seizure activity at home. called paramedics. She claims the patient has frothy mouth and he was unresponsive for about 10 minutes. She called 911 and was transferred here. She also claims the patient has been drinking almost every day. The patient is currently awake and alert. He denies any chest pain, palpitation. He had been seizure-free since in the hospital. PAST MEDICAL HISTORY: Significant for alcohol abuse. MEDICATIONS: None. ALLERGIES: None. FAMILY HISTORY: Noncontributory. SOCIAL HISTORY: Lives at home with . He denies any smoking. Denies any illegal drugs. Does drink alcohol. PHYSICAL EXAMINATION: GENERAL: This is a young male, currently in bed, comfortable. VITAL SIGNS: Blood pressure is 115/75, pulse 77 to 98, temperature 97.7. SKIN: Good skin turgor. HEENT: NAD. CHEST: Bilaterally clear. CARDIOVASCULAR: Regular rhythm. No gallop. No murmur. ABDOMEN: Soft. Positive bowel sounds. Nontender. EXTREMITIES: No edema. : Deferred. LABORATORY AND DIAGNOSTIC DATA: White counts are 17,000, hemoglobin is 14, hematocrit 40, platelets are 50. Chemistry panel, sodium 128, potassium 3.1, BUN 13, creatinine 0.6, glucose 144. LFTs are high. Troponins are negative. Imaging, his head CT is normal. No acute intracranial abnormality. His chest x-ray, mild bibasilar atelectasis, no other focal consolidation. ASSESSMENT: 1. Recurrent seizure. 2. Alcohol abuse. 3. Hyponatremia. 4. Hypokalemia. 5. Acute hepatitis. 6. Acute liver injury. PLAN: We will admit on tele bed. Start IV fluids, banana bag, Ativan, Librium, thiamine. Consider psych consult. Garth Quezada M.D. DR: ROSALBA JOB#: [id number] CC:
[2020-02-02] VITALS: BP 110/65
[2020-02-02 04:00] VITALS: BP 107/61
--- NOTE | 2020-02-02 07:31 | NUR ---
CASE MANAGEMENT:REVIEW 39 YR OLD BROUGHT TO ER BY CC: SEIZURE SI: ETOH WITHDRAWAL. SEIZURE 98.8 115 18 144/82 97% ON RA WBC+16.9 PLT-50 NA-128 K-3.1 IS: IV KEPPRA IV ATIVAN 1L NS BOLUS IV THIAMINE CT HEAD CHEST XRAY SEIZURE PRECAUTIONS NEURO CHECKS Q4 : TO TELEMETRY DCP: FROM HOME
--- NOTE | 2020-02-02 07:36 | NUR ---
NURSE NOTES: Report received from Nikole HERMAN. Patient seen on rounds, up and ambulating with steady gait, not in distress. No seizures reported overnight. SR on teke monitor. PIV on right forearm patent and infusing IV MVI bag as ordered. Bed low and locked, siderails up x2 and padded, call light placed within reach and instructed to call nurse for assistance. Will continue to monitor.
[2020-02-02 08:00] VITALS: BP 114/81
[2020-02-02] MEDS: chlordiazePOXIDE 25mg Cap ORAL SCH ×3 (08:36→17:27)
--- NOTE | 2020-02-02 09:07 | General Progress Note ---
Subjective ROS Limited/Unobtainable: Yes Allergies: Coded Allergies: No Known Allergies (Unverified , 12/19/13) Objective Last 24 Hour Vital Signs Date Time Temp Pulse Resp B/P (MAP) Pulse Ox O2 Delivery O2 Flow Rate FiO2 02/02/20 04:00 98.5 93 20 107/61 (76) 95 02/02/20 04:00 89 02/02/20 00:00 98.7 91 19 110/65 (80) 96 02/02/20 00:00 89 02/01/20 21:00 Room Air 02/01/20 20:00 99.7 98 20 107/70 (82) 97 02/01/20 20:00 100 02/01/20 16:00 98 02/01/20 16:00 97.7 77 18 115/75 (88) 98 02/01/20 15:58 Room Air 02/01/20 15:49 98.8 18 144/82 97 Room Air 02/01/20 13:04 115 18 144/82 97 02/01/20 12:34 115 02/01/20 12:15 98.8 18 144/82 97 Room Air 02/01/20 12:15 115 18 Room Air 02/01/20 12:01 98.8 115 18 144/82 (102) 97 Room Air Intake and Output 02/01/20 02/02/20 19:00 07:00 Intake Total 1240 ml 400 ml Balance 1240 ml 400 ml Intake Oral 240 ml 400 ml IV Total 1000 ml # Voids 1 3 # Bowel Movements 3 Laboratory Tests 02/01/20 12:25: White Blood Count 16.9H, Red Blood Count 4.08L, Hemoglobin 13.8L, Hematocrit 39.5L, Mean Corpuscular Volume 97, Mean Corpuscular Hemoglobin 33.9H, Mean Corpuscular Hemoglobin Concent 35.0, Red Cell Distribution Width 12.4, Platelet Count 50L, Mean Platelet Volume 12.5H, Neutrophils (%) (Auto) , Lymphocytes (%) (Auto) , Monocytes (%) (Auto) , Eosinophils (%) (Auto) , Basophils (%) (Auto) , Differential Total Cells Counted 100, Neutrophils % (Manual) 83H, Lymphocytes % (Manual) 6L, Monocytes % (Manual) 7, Eosinophils % (Manual) 0, Basophils % (Manual) 0, Band Neutrophils 4, Platelet Estimate DecreasedL, Platelet Morphology , Giant Platelets Occasional, Red Blood Cell Morphology Normal, Sodium Level 128L, Potassium Level 3.1L, Chloride Level 93L, Carbon Dioxide Level 26, Anion Gap 9, Blood Urea Nitrogen 13, Creatinine 0.6, Estimat Glomerular Filtration Rate > 60, Glucose Level 144H, Calcium Level 7.7L, Total Bilirubin 4.7H, Direct Bilirubin 2.6H, Aspartate Amino Transf (AST/SGOT) 216H, Alanine Aminotransferase (ALT/SGPT) 63, Alkaline Phosphatase 193H, Total Creatine Kinase 399H, Troponin I 0.009, Total Protein 8.7H, Albumin 3.3L, Globulin 5.4, Albumin/Globulin Ratio 0.6L, Acetaminophen Level < 2L, Serum Alcohol < 3 02/01/20 12:30: POC Whole Blood Glucose 140H 02/01/20 14:07: Urine Color Yellow, Urine Appearance Clear, Urine pH 6, Urine Specific [place] 1.010, Urine Protein Negative, Urine Glucose (UA) Negative, Urine Ketones Negative, Urine Blood 2+H, Urine Nitrite Negative, Urine Bilirubin Negative, Urine Urobilinogen Normal, Urine Leukocyte Esterase Negative, Urine RBC 0-2H, Urine WBC 0-2, Urine Squamous Epithelial Cells Occasional, Urine Bacteria Occasional, Urine Opiates Screen Negative, Urine Barbiturates Screen Negative, Phencyclidine (PCP) Screen Negative, Urine Amphetamines Screen Negative, Urine Benzodiazepines Screen Negative, Urine Cocaine Screen Negative, Urine Marijuana (THC) Screen Negative Height (Feet): 5 Height (Inches): 5.00 Weight (Pounds): 159 General Appearance: alert EENT: normal ENT inspection Neck: supple Cardiovascular: normal rate Respiratory/Chest: decreased breath sounds Abdomen: normal bowel sounds, non tender, soft Extremities: non-tender Assessment/Plan Assessment/Plan: gastroenteritis ETOH liver DZ abd us check labs (see orderes) hepatitis panel Covid Check Estuardo Mahajan MD Feb 02, 2020 09:07
--- NOTE | 2020-02-02 09:40 | NUR ---
Social Work This Sw received a consult due to substance abuse. This Sw met with patient who speaks mostly Luxembourgish who explains he lives with his spouse and children. 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 Patient admitted to using alcohol, two to three drinks per day, while denying any problems or concerns at this time. Patient stating no further needs or concerns, does not currently express any need for change at this time.
--- NOTE | 2020-02-02 11:28 | NUR ---
NURSE NOTES: Swabbed on right nares, specimen taken down to lab.
--- NOTE | 2020-02-02 11:38 | General Progress Note ---
Subjective Constitutional: Reports: malaise HEENT: Reports: no symptoms Respiratory: Reports: no symptoms Gastrointestinal/Abdominal: Reports: abdominal pain, rectal bleeding Genitourinary: Reports: no symptoms Neurologic/Psychiatric: Reports: seizure Endocrine: Reports: no symptoms Allergies: Coded Allergies: No Known Allergies (Unverified , 12/19/13) Subjective more awake doing ok Objective Last 24 Hour Vital Signs Date Time Temp Pulse Resp B/P (MAP) Pulse Ox O2 Delivery O2 Flow Rate FiO2 02/02/20 09:00 Room Air 02/02/20 08:00 99.3 98 20 114/81 (92) 98 02/02/20 08:00 104 02/02/20 04:00 98.5 93 20 107/61 (76) 95 02/02/20 04:00 89 02/02/20 00:00 98.7 91 19 110/65 (80) 96 02/02/20 00:00 89 02/01/20 21:00 Room Air 02/01/20 20:00 99.7 98 20 107/70 (82) 97 02/01/20 20:00 100 02/01/20 16:00 98 02/01/20 16:00 97.7 77 18 115/75 (88) 98 02/01/20 15:58 Room Air 02/01/20 15:49 98.8 18 144/82 97 Room Air 02/01/20 13:04 115 18 144/82 97 02/01/20 12:34 115 02/01/20 12:15 98.8 18 144/82 97 Room Air 02/01/20 12:15 115 18 Room Air 02/01/20 12:01 98.8 115 18 144/82 (102) 97 Room Air Intake and Output 02/01/20 02/02/20 19:00 07:00 Intake Total 1240 ml 400 ml Balance 1240 ml 400 ml Intake Oral 240 ml 400 ml IV Total 1000 ml # Voids 1 3 # Bowel Movements 3 Laboratory Tests 02/01/20 12:25: White Blood Count 16.9H, Red Blood Count 4.08L, Hemoglobin 13.8L, Hematocrit 39 .5L, Mean Corpuscular Volume 97, Mean Corpuscular Hemoglobin 33.9H, Mean Corpuscular Hemoglobin Concent 35.0, Red Cell Distribution Width 12.4, Platelet Count 50L, Mean Platelet Volume 12.5H, Neutrophils (%) (Auto) , Lymphocytes (%) (Auto) , Monocytes (%) (Auto) , Eosinophils (%) (Auto) , Basophils (%) (Auto) , Differential Total Cells Counted 100, Neutrophils % (Manual) 83H, Lymphocytes % (Manual) 6L, Monocytes % (Manual) 7, Eosinophils % (Manual) 0, Basophils % (Manual) 0, Band Neutrophils 4, Platelet Estimate DecreasedL, Platelet Morphology , Giant Platelets Occasional, Red Blood Cell Morphology Normal, Sodium Level 128L, Potassium Level 3.1L, Chloride Level 93L, Carbon Dioxide Level 26, Anion Gap 9, Blood Urea Nitrogen 13, Creatinine 0.6, Estimat Glomerular Filtration Rate > 60, Glucose Level 144H, Calcium Level 7.7L, Total Bilirubin 4.7H, Direct Bilirubin 2.6H, Aspartate Amino Transf (AST/SGOT) 216H, Alanine Aminotransferase (ALT/SGPT) 63, Alkaline Phosphatase 193H, Total Creatine Kinase 399H, Troponin I 0.009, Total Protein 8.7H, Albumin 3.3L, Globulin 5.4, Albumin/Globulin Ratio 0.6L, Acetaminophen Level < 2L, Serum Alcohol < 3 02/01/20 12:30: POC Whole Blood Glucose 140H 02/01/20 14:07: Urine Color Yellow, Urine Appearance Clear, Urine pH 6, Urine Specific [place] 1.010, Urine Protein Negative, Urine Glucose (UA) Negative, Urine Ketones Negative, Urine Blood 2+H, Urine Nitrite Negative, Urine Bilirubin Negative, Urine Urobilinogen Normal, Urine Leukocyte Esterase Negative, Urine RBC 0-2H, Urine WBC 0-2, Urine Squamous Epithelial Cells Occasional, Urine Bacteria Occasional, Urine Opiates Screen Negative, Urine Barbiturates Screen Negative, Phencyclidine (PCP) Screen Negative, Urine Amphetamines Screen Negative, Urine Benzodiazepines Screen Negative, Urine Cocaine Screen Negative, Urine Marijuana (THC) Screen Negative Height (Feet): 5 Height (Inches): 5.00 Weight (Pounds): 159 General Appearance: alert EENT: PERRL/EOMI Neck: supple Cardiovascular: regular rhythm Respiratory/Chest: normal breath sounds Abdomen: non tender, soft Extremities: non-tender Skin: warm/dry Assessment/Plan Status: doing well Assessment/Plan: 1 aloc 2 seizure 3 etoh abused 4 lgi bleeding 5 ac liver injury secondary to etoh 6 hypokalemia 7 hyponatremia ivf banana beg check us of liver gi, neuro and psych consult Jose Quezada MD Feb 02, 2020 11:38
[2020-02-02 12:00] VITALS: BP 120/75
[2020-02-02] MEDS ORDERED: LORazepam 1mg tab ORAL PRN (15:43)
[2020-02-02 16:00] VITALS: BP 121/82
--- NOTE | 2020-02-02 17:16 | NUR ---
NURSE NOTES: patient was transferred from tele placed room 402-[address]as[address] andrade. DX of Alcohol withdrawal/ seizure. received report from BATSHEVA Cornell. no episode of seizure since admission. A&Ox4, verbally responsive. no respiratory distress noted on room air. no pain at this time. IV on RFA intact. flushed. checked and counted belongings with nurse and patient. PUI COVID for US ABD procedure. PPE at all times. ambulatory. bed in the lowest position and locked. call light within reach.
--- NOTE | 2020-02-02 17:18 | NUR ---
TRANSFER TO FLOOR: Patient transferred to [facility], per Dr. Quezada. Report given to Yanira HERMAN. Belongings and medications given to patient. Family and or S/O informed of transfer.
[2020-02-02] MEDS: Folic Acid 1 MG, Magnesium Sulfate 2,000 MG, Multivitamin - 12 Injection 10 ML in Sodiu... IV SCH (18:03)
[2020-02-02] MEDS: Thiamine 100mg in D5W 55ml IVPB SCH (18:04)
--- NOTE | 2020-02-02 19:02 | NUR ---
NURSE HAND-OFF: Important Events on Shift:transferred from [facility], IV fluid for ETOH withdrawal. seizure precaution. Patient Status: stable Diet: regular diet. midnight NPO Pending Orders: US abd on 02/03/20 Pending Results/Labs:COVID PCR Pending notification:n/a Latest Vital Signs: Temperature 98.0 , Pulse 93 , B/P 121 /82 , Respiratory Rate 19 , O2 SAT 96 , Room Air, O2 Flow Rate . Vital Sign Comment: stable Latest [place] Fall Score: 20 Fall Risk: Low Risk Safety Measures: Call light Within Reach, Bed Alarm , Side Rails Side Rails x2, Bed position Low and Locked. Fall Precautions: Patient Fall Education Report given to BATSHEVA Roth.
--- NOTE | 2020-02-02 19:25 | NUR ---
NURSE NOTES: received report from chirag jamil. patient on bed, awake and verbally responsive. luxembourgish speaking but speaks simple japanese. on room air. no sob. denies any pain or discomfort. iv access on the RFA running banana bag at 125 ml/hr. ambulatory. padded side rails for seizure precautions. per chirag jamil " patient has order for US abd complete, oliver is aware"reiterated to call and ask for assistance to prevent fall or injury. call light and light button within easy reach. bed locked and in lowest position. will continue plan of care.
[2020-02-02 20:00] VITALS: BP 119/76
--- NOTE | 2020-02-02 23:10 | Psychiatry Consultation ---
Psychiatry Consultation Psychiatry Consultation Chief Complaint: Seizure History of Present Illness: 39-year-old male with a history of multiple medical issues including alcohol dependence, anhedonia, worthlessness, gastritis, colitis. He has been admitted to the hospital for alcohol withdrawal and abdominal pain. The patient presents with anxiety and episodes of agitation. The patient was started on benzodiazepine. Does not endorse any suicidal or homicidal ideation. PAST PSYCHIATRIC HISTORY: Anxiety, depression. PAST MEDICAL HISTORY: Significant for gastritis. ALLERGIES: No known drug allergies. SUBSTANCE ABUSE HISTORY: drinking. SOCIAL HISTORY: The patient lives at home. Has been . He is currently not working. MENTAL STATUS EXAMINATION: Alert and oriented times self, place, and situation. Mood is anxious. Affect is blunted, congruent with mood. Thought process is concrete. Thought content, there is no suicidal or homicidal ideation. Cognition is impaired. Insight and judgment impaired. ASSESSMENT: [place] I Alcohol dependence. Alcohol withdrawal. [place] II Deferred. [place] III As above. [place] IV Low. [place] V 50. PLAN: 1. Continue the Librium. 2. Provide the patient with reality orientation and supportive therapy. 3. Continue to follow and readjust his medications. Allergies: Coded Allergies: No Known Allergies (Unverified , 12/19/13) Medication History Scheduled Famotidine* (Pepcid 20mg tablet*), 20 MG ORAL TWICE A DAY Famotidine* (Pepcid 20mg tablet*), 20 MG ORAL TWICE A DAY No Known Medications* (NKM - No Known Medications*), 0 ., (Reported) Scheduled PRN Mag Hydrox/Al Hydrox/Simeth (Maalox Maximum Strength Susp), 355 ML PO TID PRN for Abdominal cramps Ondansetron Odt* (Zofran Odt*), 4 MG BC EVERY 6 HOURS PRN for Nausea & Vomiting Objective Data Height (Feet): 5 Height (Inches): 5.00 Weight (Pounds): 159 Courtney Liz MD Feb 02, 2020 23:09
[2020-02-03] VITALS: BP_SYST 119; BP_DIAS 7; BP_DIAS 73
[2020-02-03 04:00] VITALS: BP 123/76
--- NOTE | 2020-02-03 05:47 | NUR ---
NURSE HAND-OFF: Important Events on Shift:safety; Patient Status: stable Diet: NPO post midnight Pending Orders: US ABD complete Pending Results/Labs: Pending MD notification: Latest Vital Signs: Temperature 97.6 , Pulse 69 , B/P 123 /76 , Respiratory Rate 20 , O2 SAT 99 , Room Air, O2 Flow Rate . Vital Sign Comment: Latest [place] Fall Score: 20 Fall Risk: Low Risk Safety Measures: Call light Within Reach, Bed Alarm , Side Rails Side Rails x2, Bed position Low and Locked. Fall Precautions: Patient Fall Education Addendum: 02/03/20 at 0703 by Bailey Duran RN HAND-OFF: Report given to chirag jamil.
[2020-02-03 06:53] LABS: AMMONIA 90 umol/L (11-32)
[2020-02-03 07:02] LABS: ALANINE AMINOTRANSFERASE 69 U/L (12-78); ALBUMIN 2.8 G/DL (3.4-5.0); ALBUMIN/GLOBULIN RATIO 0.6 (1.0-2.7); ALKALINE PHOSPHATASE 196 U/L (46-116); AMYLASE 87 U/L (25-115); ANION GAP 8 mmol/L (5-15); ASPARTATE AMINO TRANSFERASE 192 U/L (15-37); BILIRUBIN,TOTAL 3.1 MG/DL (0.2-1.0); BLOOD UREA NITROGEN 7 mg/dL (7-18); CALCIUM 7.6 MG/DL (8.5-10.1); CARBON DIOXIDE 25 MMOL/L (21-32); CHLORIDE 105 MMOL/L (98-107); CREATININE 0.5 MG/DL (0.55-1.30); POTASSIUM 3.3 MMOL/L (3.5-5.1); SODIUM 137 MMOL/L (136-145)
[2020-02-03 07:03] LABS: BILIRUBIN,DIRECT 1.3 MG/DL (0.0-0.3)
[2020-02-03 07:21] LABS: HEMATOCRIT 34.6 % (42.0-52.0); HEMOGLOBIN 12.6 G/DL (14.2-18.0); MEAN CORPUSCULAR VOLUME 94 FL (80-99); PLATELET COUNT 51 K/UL (150-450); RED BLOOD COUNT 3.68 M/UL (4.70-6.10); RED CELL DISTRIBUTION WIDTH 13.6 % (11.6-14.8); WHITE BLOOD COUNT 8.1 K/UL (4.8-10.8)
[2020-02-03 08:00] VITALS: BP 122/80
--- NOTE | 2020-02-03 08:05 | NUR ---
NURSE NOTES: Patient stable, AAOX 4. No signs of respiratory distress. Last bowel movement this morning: regular color, firmness, amount. IV flushed with NS, patent, asymptomatic. Bed in lowest position and locked. Call light within reach. Will continue to monitor. Addendum: 02/03/20 at 0818 by ROSSY DUPREE RN received report from BATSHEVA Roth.
[2020-02-03 08:07] LABS: INR 1.2 (0.9-1.1)
[2020-02-03] MEDS: chlordiazePOXIDE 25mg Cap ORAL SCH ×3 (09:05→18:25)
--- NOTE | 2020-02-03 10:35 | General Progress Note ---
Subjective ROS Limited/Unobtainable: Yes Allergies: Coded Allergies: No Known Allergies (Unverified , 12/19/13) Objective Last 24 Hour Vital Signs Date Time Temp Pulse Resp B/P (MAP) Pulse Ox O2 Delivery O2 Flow Rate FiO2 02/03/20 08:00 94 18 122/80 (94) 96 02/03/20 04:00 97.6 69 20 123/76 (92) 99 02/03/20 00:00 97.8 75 19 119/73 (88) 98 02/02/20 21:00 Room Air 02/02/20 20:00 97.6 75 19 119/76 (90) 98 02/02/20 16:00 98.0 66 19 121/82 (95) 96 02/02/20 16:00 93 02/02/20 12:00 98.8 103 19 120/75 (90) 96 02/02/20 12:00 96 Intake and Output 02/02/20 02/03/20 19:00 07:00 Intake Total 112 ml Output Total 3 ml Balance 109 ml IV Total 112 ml Output Stool Total 3 ml # Voids 4 # Bowel Movements 1 1 Laboratory Tests 02/03/20 04:40: White Blood Count 8.1, Red Blood Count 3.68L, Hemoglobin 12.6L, Hematocrit 34.6L , Mean Corpuscular Volume 94, Mean Corpuscular Hemoglobin 34.2H, Mean Corpuscular Hemoglobin Concent 36.4H, Red Cell Distribution Width 13.6, Platelet Count 51L, Mean Platelet Volume 10.2H, Neutrophils (%) (Auto) , Lymphocytes (%) (Auto) , Monocytes (%) (Auto) , Eosinophils (%) (Auto) , Basophils (%) (Auto) , Differential Total Cells Counted 100, Neutrophils % (Manual) 76H, Lymphocytes % (Manual) 13L, Monocytes % (Manual) 8, Eosinophils % (Manual) 3, Basophils % (Manual) 0, Band Neutrophils 0, Platelet Estimate DecreasedL, Platelet Morphology Normal, Polychromasia 1+, Prothrombin Time 13.3H, Prothromb Time International Ratio 1.2H, Activated Partial Thromboplast Time 31, Sodium Level 137, Potassium Level 3.3L, Chloride Level 105, Carbon Dioxide Level 25, Anion Gap 8, Blood Urea Nitrogen 7, Creatinine 0.5L, Estimat Glomerular Filtration Rate > 60, Glucose Level 110H, Calcium Level 7.6L, Total Bilirubin 3.1H, Direct Bilirubin 1.3H, Aspartate Amino Transf (AST/SGOT) 192H, Alanine Aminotransferase (ALT/SGPT) 69, Alkaline Phosphatase 196H, Ammonia 90H, Total Protein 7.3, Albumin 2.8L, Globulin 4.5, Albumin/Globulin Ratio 0.6L, Amylase Level 87, Lipase 741H, Hepatitis A IgM Antibody [Pending], Hepatitis B Surface Antigen [Pending], Hepatitis B Core IgM Antibody [Pending], Hepatitis C Antibody [Pending] Height (Feet): 5 Height (Inches): 5.00 Weight (Pounds): 159 General Appearance: alert EENT: normal ENT inspection Neck: supple Cardiovascular: normal rate Respiratory/Chest: decreased breath sounds Abdomen: normal bowel sounds, non tender, soft Extremities: non-tender Assessment/Plan Status: doing well Assessment/Plan: gastroenteritis ETOH liver DZ abd us hepatitis panel add lactulose and xifaxan banana bag will Estuardo Richards MD Feb 03, 2020 10:35
[2020-02-03 12:00] VITALS: BP 130/87
--- NOTE | 2020-02-03 13:00 | NUR ---
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 97.6 HR 87 RR 18 B/P 130/67 RA 965 K 3.3 AST 192 ALK PHOS 196 IS: FOLIC ACID IV THIAMINE IV LIBRIUM RIFAXIMIN PO MED/SURG STATUS
--- NOTE | 2020-02-03 13:03 | Diagnostic Imaging Report ---
EXAM: ULTRASOUND US ABD Complete CLINICAL HISTORY: Abdominal pain. Alcohol withdrawal. COMPARISON: None TECHNIQUE: Ultrasound examination of the abdomen includes grayscale images, and color and spectral doppler analysis. FINDINGS: There is an enlarged fatty liver, diffusely echogenic. There is also splenomegaly. Mild gallbladder wall thickening noted. No stone or sludge seen. Patient is not focally tender. Common bile duct measures 4 mm. The pancreas is unremarkable to the extent visualized. The kidneys are normal in size, shape and axis. Aorta and cava are within normal limits. IMPRESSION: HEPATOSPLENOMEGALY WITH FATTY LIVER. SLIGHTLY THICKENED GALLBLADDER WALL BUT NO STONE OR SLUDGE SEEN. PATIENT NOT FOCALLY TENDER.
--- NOTE | 2020-02-03 15:45 | General Progress Note ---
Subjective Allergies: Coded Allergies: No Known Allergies (Unverified , 12/19/13) Subjective more awake doing ok c no c/o Objective Last 24 Hour Vital Signs Date Time Temp Pulse Resp B/P (MAP) Pulse Ox O2 Delivery O2 Flow Rate FiO2 02/03/20 12:00 97.6 81 18 130/87 (101) 96 02/03/20 09:00 Room Air 02/03/20 08:00 94 18 122/80 (94) 96 02/03/20 04:00 97.6 69 20 123/76 (92) 99 02/03/20 00:00 97.8 75 19 119/73 (88) 98 02/02/20 21:00 Room Air 02/02/20 20:00 97.6 75 19 119/76 (90) 98 02/02/20 16:00 98.0 66 19 121/82 (95) 96 02/02/20 16:00 93 Intake and Output 02/02/20 02/03/20 19:00 07:00 Intake Total 112 ml Output Total 3 ml Balance 109 ml IV Total 112 ml Output Stool Total 3 ml # Voids 4 # Bowel Movements 1 1 Laboratory Tests 02/03/20 04:40: White Blood Count 8.1, Red Blood Count 3.68L, Hemoglobin 12.6L, Hematocrit 34.6L , Mean Corpuscular Volume 94, Mean Corpuscular Hemoglobin 34.2H, Mean Corpuscular Hemoglobin Concent 36.4H, Red Cell Distribution Width 13.6, Platelet Count 51L, Mean Platelet Volume 10.2H, Neutrophils (%) (Auto) , Lymphocytes (%) (Auto) , Monocytes (%) (Auto) , Eosinophils (%) (Auto) , Basophils (%) (Auto) , Differential Total Cells Counted 100, Neutrophils % (Manual) 76H, Lymphocytes % (Manual) 13L, Monocytes % (Manual) 8, Eosinophils % (Manual) 3, Basophils % (Manual) 0, Band Neutrophils 0, Platelet Estimate DecreasedL, Platelet Morphology Normal, Polychromasia 1+, Prothrombin Time 13.3H, Prothromb Time International Ratio 1.2H, Activated Partial Thromboplast Time 31, Sodium Level 137, Potassium Level 3.3L, Chloride Level 105, Carbon Dioxide Level 25, Anion Gap 8, Blood Urea Nitrogen 7, Creatinine 0.5L, Estimat Glomerular Filtration Rate > 60, Glucose Level 110H, Calcium Level 7.6L, Total Bilirubin 3.1H, Direct Bilirubin 1.3H, Aspartate Amino Transf (AST/SGOT) 192H, Alanine Aminotransferase (ALT/SGPT) 69, Alkaline Phosphatase 196H, Ammonia 90H, Total Protein 7.3, Albumin 2.8L, Globulin 4.5, Albumin/Globulin Ratio 0.6L, Amylase Level 87, Lipase 741H, Hepatitis A IgM Antibody [Pending], Hepatitis B Surface Antigen [Pending], Hepatitis B Core IgM Antibody [Pending], Hepatitis C Antibody [Pending] Height (Feet): 5 Height (Inches): 5.00 Weight (Pounds): 159 General Appearance: alert EENT: PERRL/EOMI Neck: supple Cardiovascular: regular rhythm Respiratory/Chest: normal breath sounds Abdomen: non tender, soft, hepatomegaly Extremities: non-tender Assessment/Plan Status: doing well Assessment/Plan: 1 aloc 2 seizure 3 etoh abused 4 lgi bleeding 5 ac liver injury secondary to etoh 6 hypokalemia 7 hyponatremia dc ivf banana beg check us of liver hepatitis results pending gi, neuro and psych consult Jose Quezada MD Feb 03, 2020 15:45
[2020-02-03 16:00] VITALS: BP 115/79
--- NOTE | 2020-02-03 16:30 | NUR ---
NURSE NOTES: Patient's body temperature taken orally was 99.9. No signs of respiratory distress noted. No pain. Asymptomatic. RN provided ice pack to put behind his neck and encouraged the patient to drink more water. Bed in lowest position and locked. Call light within reach. Will continue to monitor.
[2020-02-03] MEDS: Folic Acid 1 MG, Magnesium Sulfate 2,000 MG, Multivitamin - 12 Injection 10 ML in Sodiu... IV SCH (18:24)
[2020-02-03] MEDS: Lactulose 20gm/30ml UDC ORAL SCH (18:24)
[2020-02-03] MEDS: Thiamine 100mg in D5W 55ml IVPB SCH (18:24)
--- NOTE | 2020-02-03 18:40 | NUR ---
NURSE NOTES: After putting ice pack behind his neck and drinking water, the patient's body temperature by oral decreased from 99.9 to 98.9. No signs of respiratory distress and no pain. Asymptomatic. Bed in lowest position and locked. Call light within reach. Will continue to monitor.
--- NOTE | 2020-02-03 19:15 | NUR ---
NURSE NOTES: Received report from Yanira HERMAN. Pt in bed, A&Ox4. Able to communicate needs in Frisian, but primary latvian speaker. On room air, no complaints of discomfort, no pain. Side rails are padded for seizure precautions. Pt calls for assistance when ambulating to restroom. Bed in locked in lowest position, call light within reach.
--- NOTE | 2020-02-03 19:15 | NUR ---
NURSE HAND-OFF: Important Events on Shift:IV fluid. thiamine IV. Patient Status: stable Diet: regular Pending Orders: n/a Pending Results/Labs:Covid PCR Pending MD notification:n/a Latest Vital Signs: Temperature 99.9 , Pulse 99 , B/P 115 /79 , Respiratory Rate 18 , O2 SAT 96 , Room Air, O2 Flow Rate . Vital Sign Comment: stable Latest Hinton Fall Score: 20 Fall Risk: Low Risk Safety Measures: Call light Within Reach, Bed Alarm , Side Rails Side Rails x2, Bed position Low and Locked. Fall Precautions: Patient Fall Education Report given to BATSHEVA Clark .
[2020-02-03 20:00] VITALS: BP 117/80
--- NOTE | 2020-02-03 23:05 | Psychiatric Progress Note ---
Psychiatry Progress Note Psychiatry Progress Note Medications Current Medications Medications (Trade) Dose Ordered Sig/Bran Route PRN Reason Start Time Stop Time Status Last Admin Dose Admin Chlordiazepoxide (Librium) 25 mg TID ORAL 02/02/20 09:00 02/08/20 16:44 02/03/20 18:25 Folic Acid 1 mg/ Magnesium Sulfate 2000 mg/ Multivitamins 10 ml/Sodium Chloride 1,014.2 ml @ 125 mls/ hr Q24H IV 02/01/20 18:00 03/02/20 17:59 02/03/20 18:24 Lactulose (Cephulac) 20 gm BID ORAL 02/03/20 18:00 03/04/20 17:59 02/03/20 18:24 Lorazepam (Ativan) 1 mg Q6H PRN ORAL agitation 02/02/20 15:43 02/09/20 15:42 Ondansetron HCl (Zofran) 4 mg Q6H PRN IVP Nausea & Vomiting 02/01/20 16:45 03/02/20 16:44 Rifaximin (Xifaxan) 550 mg EVERY 12 HOURS ORAL 02/03/20 21:00 02/10/20 20:59 02/03/20 21:10 Thiamine HCl 100 mg/Dextrose 56 ml @ 112 mls/hr Q24H IVPB 02/02/20 18:00 03/03/20 17:59 02/03/20 18:24 Neurological/Psychiatric: Reports: anxiety, depressed, emotional problems, seizure Allergies: Coded Allergies: No Known Allergies (Unverified , 12/19/13) Objective Data Height (Feet): 5 Height (Inches): 5.00 Weight (Pounds): 159 General Appearance: WD/WN, no apparent distress, alert Additional Comments: Alert and oriented times self, place, and situation. Mood is anxious. Affect is blunted, congruent with mood. Thought process is concrete. Thought content, there is no suicidal or homicidal ideation. Cognition is impaired. Insight and judgment impaired. ASSESSMENT: [place] I Alcohol dependence. Alcohol withdrawal. [place] II Deferred. [place] III As above. [place] IV Low. [place] V 50. PLAN: 1. Continue the Librium. 2. Provide the patient with reality orientation and supportive therapy. 3. Continue to follow and readjust his medications. Assessment/Plan Status: doing well Courtney Liz MD Feb 03, 2020 23:05
[2020-02-04] VITALS: BP 126/66
[2020-02-04 04:00] VITALS: BP 137/77
--- NOTE | 2020-02-04 07:15 | General Progress Note ---
Subjective ROS Limited/Unobtainable: No Allergies: Coded Allergies: No Known Allergies (Unverified , 12/19/13) Objective Last 24 Hour Vital Signs Date Time Temp Pulse Resp B/P (MAP) Pulse Ox O2 Delivery O2 Flow Rate FiO2 02/04/20 04:00 99.4 88 20 137/77 (97) 93 02/04/20 00:00 98.2 104 16 126/66 (86) 98 02/03/20 21:00 Room Air 02/03/20 20:00 99.0 104 16 117/80 (92) 97 02/03/20 16:00 99.9 99 18 115/79 (91) 96 02/03/20 12:00 97.6 81 18 130/87 (101) 96 02/03/20 09:00 Room Air 02/03/20 08:00 94 18 122/80 (94) 96 Intake and Output 02/03/20 02/04/20 19:00 07:00 Intake Total 605 ml 1240 ml Balance 605 ml 1240 ml Intake Oral 480 ml 240 ml IV Total 125 ml 1000 ml # Voids 3 3 # Bowel Movements 1 Height (Feet): 5 Height (Inches): 5.00 Weight (Pounds): 159 General Appearance: no apparent distress EENT: PERRL/EOMI Neck: supple Cardiovascular: normal rate Respiratory/Chest: decreased breath sounds Abdomen: normal bowel sounds, non tender, soft Extremities: non-tender Assessment/Plan Status: doing well Assessment/Plan: gastroenteritis ETOH liver DZ abd us hepatitis panel>>>negative lactulose and xifaxan repeat labs will fu Estuardo Mahajan MD Feb 04, 2020 07:15
--- NOTE | 2020-02-04 07:33 | NUR ---
NURSE HAND-OFF: Important Events on Shift: Patient is stable, ambulate to restroom independently. Patient Status: Stable Diet: Regular Pending Orders: N/A Pending Results/Labs: CBC, CMP, Ammonia Pending MD notification: N/A Latest Vital Signs: Temperature 99.4 , Pulse 88 , B/P 137 /77 , Respiratory Rate 20 , O2 SAT 93 , Room Air, O2 Flow Rate . Vital Sign Comment: Stable Latest Hinton Fall Score: 20 Fall Risk: Low Risk Safety Measures: Call light Within Reach, Bed Alarm , Side Rails Side Rails x2, Bed position Low and Locked. Fall Precautions: Patient Fall Education Report given to BATSHEVA Doyle.
[2020-02-04 07:46] LABS: HEMOGLOBIN 12.6 G/DL (14.2-18.0); MEAN CORPUSCULAR VOLUME 96 FL (80-99); PLATELET COUNT 58 K/UL (150-450); RED BLOOD COUNT 3.65 M/UL (4.70-6.10); RED CELL DISTRIBUTION WIDTH 13.2 % (11.6-14.8); WHITE BLOOD COUNT 7.3 K/UL (4.8-10.8)
[2020-02-04 08:00] VITALS: BP 109/69
[2020-02-04 08:01] LABS: ALANINE AMINOTRANSFERASE 78 U/L (12-78); ALBUMIN 2.7 G/DL (3.4-5.0); ALBUMIN/GLOBULIN RATIO 0.6 (1.0-2.7); ALKALINE PHOSPHATASE 212 U/L (46-116); ANION GAP 8 mmol/L (5-15); ASPARTATE AMINO TRANSFERASE 157 U/L (15-37); BILIRUBIN,TOTAL 2.9 MG/DL (0.2-1.0); BLOOD UREA NITROGEN 4 mg/dL (7-18); CALCIUM 8.1 MG/DL (8.5-10.1); CARBON DIOXIDE 24 MMOL/L (21-32); CHLORIDE 105 MMOL/L (98-107); CREATININE 0.5 MG/DL (0.55-1.30); POTASSIUM 3.3 MMOL/L (3.5-5.1); SODIUM 137 MMOL/L (136-145)
[2020-02-04 08:11] LABS: BILIRUBIN,DIRECT 1.4 MG/DL (0.0-0.3)
--- NOTE | 2020-02-04 08:42 | NUR ---
NURSE NOTES: received report from Amber,RN. patient in bed, a&ox4, verbally responsive. no respiratory distress noted on room air. no pain at this time. IV on RFA intact. flushed. ambulatory. bed in the lowest position and locked. IV fluid finished. call light within reach. PUI covid. result pending. seizure precaution. side rails are padded. will continue to provide plan of care.
[2020-02-04] MEDS: chlordiazePOXIDE 25mg Cap ORAL SCH (09:03)
[2020-02-04] MEDS: Lactulose 20gm/30ml UDC ORAL SCH (09:03)
--- NOTE | 2020-02-04 11:00 | NUR ---
NURSE NOTES: seen by Dr. king. patient covid resulted negative. stable. received order dc home, no dc medications. f/u with Dr. king after discharge. order noted and carried out.
--- NOTE | 2020-02-04 11:19 | General Progress Note ---
Subjective Allergies: Coded Allergies: No Known Allergies (Unverified , 12/19/13) Subjective more awake doing ok covid results pending no c/o Objective Last 24 Hour Vital Signs Date Time Temp Pulse Resp B/P (MAP) Pulse Ox O2 Delivery O2 Flow Rate FiO2 02/04/20 09:00 Room Air 02/04/20 08:00 99.0 88 20 109/69 (82) 97 02/04/20 04:00 99.4 88 20 137/77 (97) 93 02/04/20 00:00 98.2 104 16 126/66 (86) 98 02/03/20 21:00 Room Air 02/03/20 20:00 99.0 104 16 117/80 (92) 97 02/03/20 16:00 99.9 99 18 115/79 (91) 96 02/03/20 12:00 97.6 81 18 130/87 (101) 96 Intake and Output 02/03/20 02/04/20 19:00 07:00 Intake Total 605 ml 1240 ml Balance 605 ml 1240 ml Intake Oral 480 ml 240 ml IV Total 125 ml 1000 ml # Voids 3 3 # Bowel Movements 1 Laboratory Tests 02/04/20 04:00: White Blood Count 7.3, Red Blood Count 3.65L, Hemoglobin 12.6L, Hematocrit 35.0L , Mean Corpuscular Volume 96, Mean Corpuscular Hemoglobin 34.7H, Mean Corpuscular Hemoglobin Concent 36.1H, Red Cell Distribution Width 13.2, Platelet Count 58L, Mean Platelet Volume 9.9, Neutrophils (%) (Auto) , Lymphocytes (%) (Auto) , Monocytes (%) (Auto) , Eosinophils (%) (Auto) , Basophils (%) (Auto) , Neutrophils % (Manual) [Pending], Lymphocytes % (Manual) [Pending], Platelet Estimate [Pending], Platelet Morphology [Pending], Sodium Level 137, Potassium Level 3.3L, Chloride Level 105, Carbon Dioxide Level 24, Anion Gap 8, Blood Urea Nitrogen 4L, Creatinine 0.5L, Estimat Glomerular Filtration Rate > 60, Glucose Level 104, Calcium Level 8.1L, Total Bilirubin 2.9H, Direct Bilirubin 1.4H, Aspartate Amino Transf (AST/SGOT) 157H, Alanine Aminotransferase (ALT/SGPT) 78, Alkaline Phosphatase 212H, Ammonia 89H, Total Protein 7.1, Albumin 2.7L, Globulin 4.4, Albumin/Globulin Ratio 0.6L Height (Feet): 5 Height (Inches): 5.00 Weight (Pounds): 159 General Appearance: alert EENT: PERRL/EOMI Neck: non-tender, supple Cardiovascular: regular rhythm Respiratory/Chest: lungs clear Abdomen: non tender, soft, hepatomegaly Extremities: normal range of motion Assessment/Plan Status: doing well Assessment/Plan: 1 aloc 2 seizure 3 etoh abused 4 lgi bleeding 5 ac liver injury secondary to etoh 6 hypokalemia 7 hyponatremia dc ivf banana beg check us of liver hepatitis results pending gi, neuro and psych consult covid 19 negative dc home fu pcp 1 week recomended join [facility] and quit etoh Jose Quezada MD Feb 04, 2020 11:19
--- NOTE | 2020-02-04 12:36 | NUR ---
NURSE NOTES: patient was discharged to home. stable. via family car. A&Ox4, verbally responsive. no respiratory distress noted on room air. no pain. negative covid. provided dc packet. signed on request medical record in chart. checked and counted belongings with patient. removed IV and ID band. escorted patient to the lobby.
--- NOTE | 2020-02-05 01:31 | Consultation ---
DATE OF CONSULTATION: 02/04/2020 CONSULTING PHYSICIAN: Courtney Liz M.D. HISTORY OF PRESENT ILLNESS: This is a 39-year-old male with a history of multiple medical issues including alcohol dependence, anhedonia, worthlessness, gastritis, colitis. He has been admitted to the hospital for alcohol withdrawal and abdominal pain. The patient presents with anxiety and episodes of agitation. The patient was started on benzodiazepine. Does not endorse any suicidal or homicidal ideation. PAST PSYCHIATRIC HISTORY: Anxiety, depression. PAST MEDICAL HISTORY: Significant for gastritis. ALLERGIES: No known drug allergies. SUBSTANCE ABUSE HISTORY: drinking. SOCIAL HISTORY: The patient lives at home. Has been . He is currently not working. MENTAL STATUS EXAMINATION: Alert and oriented times self, place, and situation. Mood is anxious. Affect is blunted, congruent with mood. Thought process is concrete. Thought content, there is no suicidal or homicidal ideation. Cognition is impaired. Insight and judgment impaired. ASSESSMENT: [place] I Alcohol dependence. Alcohol withdrawal. [place] II Deferred. [place] III As above. [place] IV Low. [place] V 50. PLAN: 1. Continue the Librium. 2. Provide the patient with reality orientation and supportive therapy. 3. Continue to follow and readjust his medications. Courtney Liz M.D. DR: DEYA JOB#: [id number] CC:
--- NOTE | 2020-02-05 15:08 | Discharge Summary ---
Discharge Summary Discharge Summary _ DATE OF ADMISSION: 02/01/2020 DATE OF DISCHARGE: 02/04/2020 DISCHARGED BY: Dr. Quezada REASON FOR ADMISSION: 39 years old male, with history of alcohol abuse, presented to emergency department after episode of seizure. Patient apparently bit the right side of his tongue. He reported drinking on a daily basis. Patient reported that when he stops drinking , he gets shaking. He denied fever and chills Patient denied driving. Upon evaluation patient was tachycardic with heart rate 115, blood pressure was 144/82 , pulse oximetry was stable on room air. Serum alcohol was less than 3 . Urine toxicology screen was negative . Laboratory work-up revealed leukocytosis WBC 16.9, platelet count 50. Sodium 128, potassium 3.1, chloride 93. Total bili 4.7 , direct bili 2.6. AST 216 , ALT 63. Troponin negative . EKG revealed sinus tachycardia Urinalysis revealed no evidence of UTI . CT of the head revealed no acute intracranial pathology. Chest x-ray revealed mild bibasilar atelectasis , no other focal consolidation . In emergency department patient received Keppra, Ativan, IV thiamine, one liter of IV fluid and admitted for further management. CONSULTANTS: GI specialist Dr Mahajan psychiatrist Dr Liz [place] [facility] [employer] [facility] COURSE: Patient admitted to medical surgical floor. Patient started on IV fluids with minerals and vitamins, including thiamine,, folic acid magnesium, and multivitamin. Librium was on board as needed. Seizure precaution maintained. Lactulose and rifaximin provided, given elevated ammonia. LFT trending down but remained elevated, likely due to alcoholic liver cirrhosis . Leukocytosis resolved. According to GI specialist leukocytosis was likely due to gastroenteritis . Symptomatic treatment provided. Antiemetic provided as needed. Patient was able to tolerate diet. Rapid Covid 19 by PCR was negative. Reality orientation and supportive therapy provided. Mental status improved. Patient counseled on abstinence from ETOH. No further seizures. Leukocytosis resolved . Sodium up to 137 . Additional potassium replaced prior to discharge. Patient clinically stabilized and was ready for discharge home. FINAL DIAGNOSES: Gastroenteritis Alcoholic liver disease Hyponatremia Hypokalemia Seizure due to alcohol withdrawal Altered level of consciousness Alcohol dependency Alcohol withdrawal DISCHARGE MEDICATIONS: See Medication Reconciliation list. DISCHARGE INSTRUCTIONS: Patient was discharged home. Follow-up with a primary care provider in 1 week. I have been assigned to dictate discharge summary for this account. I was not involved in the patient's management. Zita Rosas NP Feb 05, 2020 15:08
== END 2020-02-04 12:36 | disposition home or self-care (01) | DRG 280 ==
LOC: EMR 12:44 → 2E 14:25 → EDBEDREQ 15:08 → 4E 02-02 17:37
DX: K70.30 Alcoholic cirrhosis of liver without ascites (principal); F10.239 Alcohol dependence with withdrawal, unspecified; K29.21 Alcoholic gastritis with bleeding; G40.89 Other seizures; E87.1 Hypo-osmolality and hyponatremia; E87.6 Hypokalemia; K52.9 Noninfective gastroenteritis and colitis, unspecified; F41.9 Anxiety disorder, unspecified
CPT/HCPCS: 36415; 70450; 71045; 76700; 80053; 80307; 81003; 82140; 82150; 82248; 82550; 82962; 83690; 84484; 85007; 85025; 85610; 85730; 86705; 86709; 86803; 87340; 93005; 96361; 96365; 96375; 99285; G0480; J7030; J8499

== ENCOUNTER 2020-04-09 19:22 | Emergency (ER) | payer MEDICAID ==
[~2020-04-09] VITALS: Ht 162.6 cm; Wt 72.6 kg
[2020-04-09] MEDS ORDERED: Thiamine HCl 100 MG in D5W 55 ML IVPB STA (19:59)
--- NOTE | 2020-04-09 20:05 | NUR ---
ED Nurse Note: Patient came in the ED, accompanied by his neice. Nathen reports that patient had two syncopal episodes today, possible seizure. Patient abuses alcohol. Patient is AAOx2, disoriented to time and time and situation. Patient is calm and cooperative, visible tremors to bilateral hands.
--- NOTE | 2020-04-09 20:30 | NUR ---
Side rails pads for seizure precautions on both sides.
[2020-04-09 20:33] LABS: HEMATOCRIT 40.7 % (42.0-52.0); HEMOGLOBIN 13.6 G/DL (14.2-18.0); MEAN CORPUSCULAR VOLUME 96 FL (80-99); PLATELET COUNT 85 K/UL (150-450); RED BLOOD COUNT 4.23 M/UL (4.70-6.10); RED CELL DISTRIBUTION WIDTH 12.9 % (11.6-14.8)
--- NOTE | 2020-04-09 20:39 | Diagnostic Imaging Report ---
EXAM: CT Head Without Intravenous Contrast CLINICAL HISTORY: ALOC TECHNIQUE: Axial computed tomography images of the head/brain without intravenous contrast. CTDI is 53.4 mGy and DLP is 1018.8 mGy-cm. One or more of the following dose reduction techniques were used: automated exposure control, adjustment of the mA and/or kV according to patient size, use of iterative reconstruction technique. COMPARISON: 02/01/20 FINDINGS: Brain: Unremarkable. No hemorrhage. No significant white matter disease. No edema. Ventricles: Unremarkable. No ventriculomegaly. Bones/joints: Unremarkable. No acute fracture. Soft tissues: Unremarkable. Sinuses: Unremarkable as visualized. No acute sinusitis. Mastoid air cells: Unremarkable as visualized. No mastoid effusion. IMPRESSION: No acute findings.
[2020-04-09 20:40] LABS: ANION GAP 11 mmol/L (5-15); BLOOD UREA NITROGEN 4 mg/dL (7-18); CALCIUM 7.9 MG/DL (8.5-10.1); CARBON DIOXIDE 27 MMOL/L (21-32); CHLORIDE 109 MMOL/L (98-107); CREATININE 0.6 MG/DL (0.55-1.30); POTASSIUM 3.5 MMOL/L (3.5-5.1); SODIUM 147 MMOL/L (136-145)
[2020-04-09 20:49] VITALS: BP 122/82
[2020-04-09 20:51] LABS: ALANINE AMINOTRANSFERASE 41 U/L (12-78); ALBUMIN 3.2 G/DL (3.4-5.0); ALBUMIN/GLOBULIN RATIO 0.6 (1.0-2.7); ALKALINE PHOSPHATASE 192 U/L (46-116); ASPARTATE AMINO TRANSFERASE 61 U/L (15-37); BILIRUBIN,TOTAL 1.1 MG/DL (0.2-1.0); CREATINE KINASE 117 U/L (26-308)
[2020-04-09 20:53] LABS: BILIRUBIN,DIRECT 0.3 MG/DL (0.0-0.3)
--- NOTE | 2020-04-09 21:18 | Emergency Room Report ---
History of Present Illness General Chief Complaint: Syncope Source: Patient, Family Member (Bobby Lynn MD) Present Illness HPI Patient apparently fell in the street. He had been drinking alcohol. He had to be helped home with assistance. Does remember this. He does remember being at home. He was left in bed. Family found him in the bathroom and he does remember moving from the bed to the bathroom. He denies any head pain or biting his tongue. Patient has a history of withdrawal seizure in the past. This happened 4 months ago. He was never started on medication. The patient was sober for 2 weeks approximately 3 months ago but then started drinking again. He drinks every day. Patient agrees with all ROS questions. - questionable historian. 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 Reviewed Nursing Documentation: PMH: Agreed; PSxH: Agreed (Bobby Lynn MD) Nursing Documentation-PMH Hx Cardiac Problems: No Hx Cancer: No Hx Neurological Problems: No (Bobby Lynn MD) Review of Systems All Other Systems: limited (Bobby Lynn MD) Physical Exam Vital Signs Date Time Temp Pulse Resp B/P (MAP) Pulse Ox O2 Delivery O2 Flow Rate FiO2 04/09/20 19:42 98.1 94 20 122/82 (95) 96 Room Air Sp02 EP Interpretation: reviewed, normal General Appearance: well appearing, alert, other - alcohol on breath Head: normocephalic, atraumatic Eyes: bilateral eye PERRL, bilateral eye Scleral Injection ENT: moist mucus membranes - No lingual macerations Neck: full range of motion Respiratory: lungs clear, normal breath sounds Cardiovascular #1: regular rate, rhythm Gastrointestinal: non tender, soft, no mass 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 Differential includes seizure, acute intoxication, trauma, light imbalance amongst others. Patient has a nonfocal neurologic exam at this time and has no sequelae of seizures. The fact he smells of alcohol at this time is much less likely that he had a seizure. Evaluation with EKG, CT of the head, chest x-ray and labs. Patient treated with IV hydration, thiamine and multivitamins and observation. Patient with seizure precautions and placed on monitoring tech. EKG normal sinus rhythm with prolonged QT. CT head without intracranial injury. Chest x-ray without infiltrates. Low platelets. BAL 393 Patient resting. Signed out to Dr. Rahman for re-evaluation. Doubt risk of DTs or withdrawal as patient recently sober. Laboratory Tests Test 04/09/20 20:05 White Blood Count 9.0 K/UL (4.8-10.8) Red Blood Count 4.23 M/UL (4.70-6.10) L Hemoglobin 13.6 G/DL (14.2-18.0) L Hematocrit 40.7 % (42.0-52.0) L Mean Corpuscular Volume 96 FL (80-99) Mean Corpuscular Hemoglobin 32.1 PG (27.0-31.0) H Mean Corpuscular Hemoglobin Concent 33.4 G/DL (32.0-36.0) Red Cell Distribution Width 12.9 % (11.6-14.8) Platelet Count 85 K/UL (150-450) L Mean Platelet Volume 9.0 FL (6.5-10.1) Neutrophils (%) (Auto) % (45.0-75.0) Lymphocytes (%) (Auto) % (20.0-45.0) Monocytes (%) (Auto) % (1.0-10.0) Eosinophils (%) (Auto) % (0.0-3.0) Basophils (%) (Auto) % (0.0-2.0) Differential Total Cells Counted 100 Neutrophils % (Manual) 57 % (45-75) Lymphocytes % (Manual) 40 % (20-45) Monocytes % (Manual) 3 % (1-10) Eosinophils % (Manual) 0 % (0-3) Basophils % (Manual) 0 % (0-2) Band Neutrophils 0 % (0-8) Platelet Estimate Decreased L Platelet Morphology Normal Red Blood Cell Morphology Normal Sodium Level 147 MMOL/L (136-145) H Potassium Level 3.5 MMOL/L (3.5-5.1) Chloride Level 109 MMOL/L (98-107) H Carbon Dioxide Level 27 MMOL/L (21-32) Anion Gap 11 mmol/L (5-15) Blood Urea Nitrogen 4 mg/dL (7-18) L Creatinine 0.6 MG/DL (0.55-1.30) Estimated Glomerular Filtration Rate > 60 mL/min (>60) Glucose Level 125 MG/DL (74-106) H Calcium Level 7.9 MG/DL (8.5-10.1) L Total Bilirubin 1.1 MG/DL (0.2-1.0) H Direct Bilirubin 0.3 MG/DL (0.0-0.3) Aspartate Amino Transferase (AST) 61 U/L (15-37) H Alanine Aminotransferase (ALT) 41 U/L (12-78) Alkaline Phosphatase 192 U/L (46-116) H Total Creatine Kinase 117 U/L (26-308) Total Protein 8.7 G/DL (6.4-8.2) H Albumin 3.2 G/DL (3.4-5.0) L Globulin 5.5 g/dL Albumin/Globulin Ratio 0.6 (1.0-2.7) L Acetaminophen Level < 2 MCG/ML (10-30) L Serum Alcohol 393 mg/dL (Bobby Lynn MD) ER Course Assumed care of the patient from the previous provider at approximately 2300. Please refer to initial note for full history and physical exam. Briefly, 39-year-old male history of alcohol abuse presented for alcohol intoxication. Labs were within normal limits. Patient was allowed to sleep in the ER throughout the night as he did not have a ride home. He is now awake and sober. Niece is on her way to pick him up. Stable for discharge. (José Miguel Rahman MD) EKG Diagnostic Results Rate: normal Rhythm: NSR ST Segments: no acute changes - Long QT 507 ms (Bobby Lynn MD) Rhythm Strip Diag. Results EP Interpretation: yes Rhythm: NSR, no PVC's, no ectopy (Bobby Lynn MD) Chest X-Ray Diagnostic Results Chest X-Ray Diagnostic Results : Chest X-Ray Ordered: Yes # of Views/Limited/Complete: 1 View Indication: Other EP Interpretation: Yes Interpretation: no consolidation, no effusion, no pneumothorax Impression: No acute disease Electronically Signed by: Electronically signed by Bobby Lynn MD (Bobby Lynn MD) CT/MRI/US Diagnostic Results CT/MRI/US Diagnostic Results : Imaging Test Ordered: head Impression No intracranial pathology (Bobby Lynn MD) Last Vital Signs Date Time Temp Pulse Resp B/P (MAP) Pulse Ox O2 Delivery O2 Flow Rate FiO2 04/09/20 21:47 98.1 18 106/76 96 Room Air 04/09/20 19:42 94 Status: improved (Bobby Lynn MD) Disposition: HOME, SELF-CARE Condition: Improved Referrals: NOT CHOSEN IPA/,REFERRING (PCP) Bobby Lynn MD Apr 09, 2020 21:18 José Miguel Rahman MD Apr 10, 2020 05:17
[2020-04-09 21:47] VITALS: BP 106/76
--- NOTE | 2020-04-09 22:26 | NUR ---
ED Nurse Note: Yazmin, patient's fernyice phone number [phone]. Neice was at patient's bedside, just left. Patient is resting in bed comfortably. BP 107/70, 78 in no acute distress.
--- NOTE | 2020-04-10 04:00 | NUR ---
Patient is resting in bed calm and comfortable, no signs of acute distress. BP 114/77, HR 84, O2sat 97%.
--- NOTE | 2020-04-10 05:57 | NUR ---
ER DISCHARGE NOTE: Patient is cleared to be discharged per ERMD, pt is aox4, on room air, with stable vital signs. pt was given dc instructions, pt was able to verbalize understanding, pt id band and iv site removed without complications. pt is able to ambulate with steady gait. family is here to slat pickler patient,pt took all belongings.
--- NOTE | 2020-04-10 12:27 | Cardiology Report ---
APPROVED REPORT EKG Measurement Heart [id number] <Conclusion> Normal sinus rhythm Prolonged QT Abnormal ECG
--- NOTE | 2020-04-10 17:14 | Diagnostic Imaging Report ---
EXAM: XR Chest, 1 View CLINICAL HISTORY: ALOC TECHNIQUE: Frontal view of the chest. COMPARISON: 02/01/2020. FINDINGS: Lungs: No consolidation. Pleural space: Unremarkable. No pneumothorax. Heart: Cardiac silhouette is stable. Mediastinum: Unremarkable. Bones/joints: No acute osseous abnormality. Other findings: No acute disease. IMPRESSION: No acute disease.
== END 2020-04-10 05:50 | disposition home or self-care (01) ==
LOC: EMR 19:53
DX: F10.929 Alcohol use, unspecified with intoxication, unspecified (principal); R55 Syncope and collapse; D69.6 Thrombocytopenia, unspecified
CPT/HCPCS: 36415; 70450; 71045; 80053; 82248; 82550; 82962; 85007; 85025; 93005; 96361; 96365; G0480; J7030; Z7502; 99284